=== PATIENT | male | born 1990 | race Caucasian/White ===

== ENCOUNTER 2023-05-06 08:30 | Outpatient (OUT) | payer BC, SELFPAY ==
[2023-05-06 09:28] LABS: Basophils Absolute Auto 0.1 10^3/uL (0.0-0.1); Basophils Percent Auto 1.3 % (0.2-2.0); Eosinophils Absolute Auto 0.3 10^3/uL (0.0-0.7); Hematocrit 46.9 % (42.0-54.0); Hemoglobin 16.1 g/dL (14.0-18.0); Immature Granulocytes Abs Auto 0.03 10^3/uL (0.00-0.03); Immature Granulocytes Pct Auto 0.4 % (0.0-0.5); Lymphocytes Absolute Auto 2.2 10^3/uL (1.2-3.8); Lymphocytes Percent Auto 25.6 % (20.5-60.0); Mean Corpuscular HGB Conc 34.3 g/dL (29.9-35.2); Mean Corpuscular Hemoglobin 30.6 pg (25.9-34.0); Mean Platelet Volume 10.6 fL (9.5-13.5); Monocytes Absolute Auto 0.6 10^3/uL (0.3-0.8); Monocytes Percent Auto 7.5 % (1.7-12.0); Neutrophils Absolute Auto 5.2 10^3/uL (1.4-6.5); Neutrophils Percent Auto 61.2 % (43.0-75.0); Platelet Count 253 10^3/uL (150-450); Red Blood Count 5.27 10^6/uL (4.70-6.10); Red Cell Distribution Width 11.9 % (11.0-15.0); White Blood Count 8.5 10^3/uL (4.0-11.0)
[2023-05-06 10:18] LABS: Estimated Average Glucose 94 mg/dL; Glycohemoglobin A1C 4.9 % (4.5-6.2)
[2023-05-06 11:10] LABS: Alanine Aminotransferase 60 U/L (16-63); Albumin Globulin Ratio 1.1; Albumin Level 3.7 g/dL (3.4-5.0); Alkaline Phosphatase 54 U/L (46-116); Anion Gap 9.3; Aspartate Amino Transferase 20 U/L (15-37); Bilirubin Total 0.4 mg/dL (0.2-1.0); Calcium 8.7 mg/dL (8.5-10.1); Carbon Dioxide 29.7 mmol/L (21.0-32.0); Chloride 107 mmol/L (98-107); Estimated GFR (African America >60 (>=60); Estimated GFR (Non-African Ame >60 (>=60); Free T3 3.22 pg/mL (2.18-3.98); Globulin 3.3 g/dL; Glucose 88 mg/dL (74-106); Sodium 142 mmol/L (136-145); Thyroid Stimulating Hormone 1.538 uIU/mL (0.358-3.740)
[2023-05-08 14:08] LABS: Insulin 21.2 uIU/mL (2.6-24.9)
== END 2023-05-06 08:31 | disposition home or self-care (01) ==
PROVIDERS: PCP Family Medicine; Visit Provider Family Medicine
DX: G43.909 Migraine, unspecified, not intractable, without status migrainosus (principal); R25.1 Tremor, unspecified; F41.9 Anxiety disorder, unspecified; R73.09 Other abnormal glucose
CPT/HCPCS: 36415; 80053; 83036; 83525; 84436; 84443; 84481; 85025

== ENCOUNTER 2023-10-19 09:12 | Outpatient (OUT) | payer BC, SELFPAY ==
--- NOTE | 2023-10-19 | XR_ITS ---
The [address] [address] Patient Name: ROBERT QUIÑONEZ MRN: [id number] date: 1990 Sex: M Assigned Patient Location: Current Patient Location: Accession/Order Number: [id number] Exam Date: 10/19/2023 09:10 Report Date: 10/20/2023 07:23 At the request of: FRANKIE ZENDEJAS Procedure: XR foot RT min 3V PROCEDURE: XR foot RT min 3V HISTORY: RIGHT FOOT PAIN ; chronic heel pain; remote history of stepping on glass COMPARISON: XR ankle right 11/05/2019 FINDINGS: BONES:No fracture, acute abnormality, or significant arthropathy. SOFT TISSUES:No visible soft tissue swelling. EFFUSION:None visible. OTHER: Negative. XR/XR foot RT min 3V IMPRESSION: 1. No radiopaque foreign body. 2. No acute or suspicious bone abnormality. Electronically authenticated by: ANTOINE BETANCOURT Date: 10/20/2023 07:23
== END 2023-10-19 09:13 | disposition home or self-care (01) ==
LOC: EC 09:12
PROVIDERS: PCP Family Medicine; Visit Provider Physician Assistant
DX: M79.671 Pain in right foot (principal)
CPT/HCPCS: 73630

== ENCOUNTER 2023-10-27 06:54 | Outpatient (OUT) | payer BC, SELFPAY ==
--- OUTSIDE RECORDS SUMMARY | 2023-10-27 06:56 | XMS_ITS | CCD ---
Author Organization [facility] Care Team Providers Care Weight Guesser Name Role Phone BERNICE ANTOINE C Unavailable Unavailable HOY, RAQUEL M Unavailable Unavailable RENETTA STOUTLEY A Unavailable Unavailab le QUEEN ANTOINE C Unavailable Unavailable HOY, RAQUEL M Unavailable Unavailable QUEEN, ANTOINE C Unavailable Unavailable HOY, RAQUEL M Unavailable Unavailable QUEEN, ANTOINE C Unavailable Unavailable HOY, RAQUEL M Unavailable Unavailable RENETTA STOUTLEY A Unavailable Unavailab le QUEEN, ANTOINE C Unavailable Unavailable HOY, RAQUEL M Unavailable Unavailable QUEEN, ANTOINE C Unavailable Unavailable HOY, RAQUEL M Unavailable Unavailable QUEEN, ANTOINE C Unavailable Unavailable HOY, RAQUEL M Unavailable Unavailable QUEEN, ANTOINE C Unavailable Unavailable HOY, RAQUEL M Unavailable Unavailable QUEEN, ANTOINE C Unavailable Unavailable HOY, RAQUEL M Unavailable Unavailable QUEEN, ANTOINE C Unavailable Unavailable HOY, RAQUEL M Unavailable Unavailable QUEEN, ANTOINE C Unavailable Unavailable HOY, RAQUEL M Unavailable Unavailable QUEEN, ANTOINE C Unavailable Unavailable HOY, RAQUEL M Unavailable Unavailable QUEEN, ANTOINE C Unavailable Unavailable HOY, RAQUEL M Unavailable Unavailable QUEEN, ANTOINE C Unavailable Unavailable HOY, RAQUEL M Unavailable Unavailable BV, Physician - Emergency Attending Raquel Montez Primary Care Unavailable RAQUEL TURNER Consulting Unavailable Raquel Turner Primary Care Physician OSCAR, DR JONES Attending Unavailable NILL, DR JONES Consulting Unavailable NILL, DR JONES Admitting Unavailable MINERVA, DR GARCÍA Primary Care Unavailable LARRY GRAVES Consulting Unavailable MINERVA, DR GARCÍA Primary Care Unavailable MINERVA, DR GARCÍA Admitting Unavailable MINERVA, DR GARCÍA Attending Unavailable MINERVA, DR GARCÍA Primary Care Unavailable NILL, DR JONES Attending Unavailable NILL, DR JONES Consulting Unavailable NILL, DR JONES Admitting Unavailable MINERVA, DR GARCÍA Primary Care Unavailable NILL, DR JONES Attending Unavailable NILL, DR JONES Consulting Unavailable NILL, DR JONES Admitting Unavailable ANIKETABHIJEET Consulting Unavailable IGNACIA MEIER Consulting Unavailable MINERVA, DR GARCÍA Primary Care Unavailable NILL, DR JONES Attending Unavailable NILL, DR JONES Admitting Unavailable NILL, Robert Ferguson Attending Unavailable Raquel Lopez Referring Unavailabl e NILL, Robert Ferguson Attending Unavailable NILL, Robert Ferguson Attending Unavailable NILL, Robert Ferguson Attending Unavailable COLE, LUZMARIA Attending Unavailable COLE, LUZMARIA Admitting Unavailable COLE, LUZMARIA Attending Unavailable COLE, LUZMARIA Attending Unavailable COLE, LUZMARIA Attending Unavailable COLE, LUZMARIA Attending Unavailable COLE, LUZMARIA Referring Unavailable Allergies Allergy Classification Reported Allergen(s) Allergy Type Date of Onset Reaction(s) Facility (3 sources) Penicillin; Translations: [penicillin] Drug Allergy 2 [facility] Repository (3 sources) Penicillins; Translations: [penicillins] Drug allergy Eruption of skin (disorder) General Surgery [place] Medications Current Medications Medication Drug Class(es) Dates Sig (Normalized) Sig (Original) 24 hr amphetamine aspartate 7.5 mg / amphetamine sulfate 7.5 mg / dextroamphetamine saccharate 7.5 mg / dextroamphetamine sulfate 7.5 mg extended release oral capsule (2 sources) Central Nervous System Stimulant Start: 05-02-2022 take 1 capsule by mouth once daily in the morning Adderall XR 30 mg Cap-ER 30 mg = 1 cap(s), Oral, qAM, Refills(s) 0 Start Date: 05/02/22 Status: Ordered cyproheptadine hydrochloride 4 mg oral tablet (2 sources) Start: 05-02-2022 take 1 tablet by mouth twice daily cyproheptadine 4 mg Tab 4 mg = 1 tab(s), Oral, BID, Refills(s) 0 Start Date: 05/02/22 Status: Ordered valACYclovir 1000 mg oral tablet (2 sources) Herpesvirus Nucleoside Analog DNA Polymerase Inhibitor, Herpes Simplex Virus Nucleoside Analog DNA Polymerase Inhibitor, Herpes Zoster Virus Nucleoside Analog DNA Polymerase Inhibitor Start: 05-02-2022 take 1 tablet by mouth three times daily valacyclovir 1 g Tab 1 gm = 1 tab(s), Oral, TID, Refills(s) 0 Start Date: 05/02/22 Status: Ordered Problems Active Problems Problem Classification Problem Date Documented Da te Episodic/Chronic Anxiety disorders (3 sources) Anxiety; Translations: [Anxiety disorder, unspecified] Onset: 05-25-2022 05-02-2022 Chronic Attention-deficit, conduct, and disruptive behavior disorders (2 sources) Attention deficit hyperactivity disorder 05-02-2022 Chronic Attention-deficit, conduct, and disruptive behavior disorders (1 source) Attention-deficit hyperactivity disorder, unspecified type; Translations: [ADHD UNSPECIFIED TYPE] Onset: 05-25-2022 Chronic Gastrointestinal hemorrhage (4 sources) Hemorrhage of rectum and anus; Translations: [Hemorrhage of anus and rectum] Onset: 05-03-2022 Episodic Hemorrhoids (2 sources) Hemorrhoids 05-02-2022 Episodic Joint disorders and dislocations; trauma-related (3 sources) Other tear of lateral meniscus, current injury, left knee, initial encounter; Translations: [Other tear of lateral meniscus, current injury, left knee, initial encounter] Onset: 06-02-2017 Episodic Other aftercare (1 source) Other vermin exterminator (current) drug therapy; Translations: [OTH MANAGER SEARCH CURRENT DRUG THERAPY] Onset: 05-25-2022 Episodic Other gastrointestinal disorders (1 source) Digestive system finding; Translations: [Other specified symptoms and signs involving the digestive system and abdomen] Onset: 06-01-2022 Episodic Other gastrointestinal disorders (1 source) Rectal discharge 06-01-2022 Episodic Other gastrointestinal disorders (4 sources) Other specified symptoms and signs involving the digestive system and abdomen; Translations: [OTH SPEC SX SIGNS DIGESTV SYS ABD] Onset: 06-11-2022 Episodic Other nutritional; endocrine; and metabolic disorders (2 sources) Body mass index 30+ - obesity 05-03-2022 Chronic Other upper respiratory disease (2 sources) Seasonal allergic rhinitis 05-02-2022 Chronic Residual codes; unclassified (1 source) Tobacco user; Translations: [Tobacco use] Onset: 05-03-2022 Episodic Residual codes; unclassified (2 sources) Chews tobacco 05-03-2022 Episodic Spondylosis; intervertebral disc disorders; other back problems (2 sources) Low back pain 05-02-2022 Episodic Substance-related disorders (1 source) Nicotine dependence, chewing tobacco, uncomplicated; Translations: [NICOTINE DEPEND CHEW TOBACCO UNCOMP] Onset: 05-25-2022 Chronic Unclassified (1 source) CONTACT W/AND (SUSP) EXPOS COVID-19; Translations: [CONTACT W/AND (SUSP) EXPOS COVID-19] Onset: 05-17-2022 Past or Other Problems Problem Classification Problem Date Documented Da te Episodic/Chronic Anal and rectal conditions (15 sources) Anorectal disorder; Translations: [Other specified diseases of anus and rectum] Onset: 05-03-2022 Episodic Results Test Name Value Interpretation Reference Range Facility Follow-Upon 12-07-2022 Follow-Up [id number] Vinicius Pagan ae 1990 M Date Provider Department Center 12/07/2022 YOSI DOWNSHANIE [facility] Second Fl Family History Problem Relation Age of Onset No Known Problems Mother No Known Problems Father Family Status - Relation Status Age at Mother Alive Father Alive Level of Service:36330 UT OFFICE/OUTPATIENT ESTABLISHED LOW MDM 20-29 MIN Reason for Visit and Comments: Follow-up [709805] - Robert is in for Perirectal abscess; s/p 07-12-23 EUA W/ I&D W/ SETON PLACEMENT (New rectal bleeding/rectal pain) a lot of drainage and pain Normal [facility] Follow-Upon 10-26-2022 Follow-Up [id number] Vinicius Pagan ael 1990 M Date Provider Department Center 10/26/2022 LUZMARIA DOWNS [facility] Second Fl Family History Problem Relation Age of Onset No Known Problems Mother No Known Problems Father Family Status - Relation Status Age at Mother Alive Father Alive Level of Service:28162 UT POSTOP FOLLOW UP VISIT RELATED TO ORIGINAL PX Reason for Visit and Comments: Follow-up [659278] - Patient is here for a follow up visit for Anal Fissure/Rectal Abscess s/p 07-12-23 EUA W/ I&D W/ SETON PLACEMENT (Discuss seton removal). Normal [facility] MR PELVIS WO CONTRASTon 03-0 MR PELVIS WO CONTRAST History: Anal fissure. Rectal abscess. Seton drain in place with persistent drainage. Comparison: None available EXAM & TECHNIQUE: Multiplanar, multisequence MR images are obtained of the pelvis without contrast. FINDINGS: There is a linear signal intensity extending from the posterior wall the anus and sphincter complex and posterior soft tissue tissues and gluteal cleft. No localized surrounding fluid collection or regional abscess. Diffusion images show no further localizing soft tissue pathology. Included portions of the lower abdomen pelvis show no evidence of free fluid, mass or adenopathy. Urinary bladder appears grossly normal. Bony structures are in normal limits. IMPRESSION: *Negative noncontrast MRI of the pelvis. No residual perianal or soft tissue fluid collection. Uncomplicated seton drain in place. Electronically signed: Dharmesh Kirkpatrick. [facility] Comment on above: Order Comment: RECTA L MRI NEEDED Office Visiton 09-02-2022 Follow-up visit [id number] IrishlluviaVinicius ael 1990 M Date Provider Department Center 09/02/2022 Ramiro-LUZMARIA GALVAN [facility] SUR[facility] Second Fl Family History Problem Relation Age of Onset No Known Problems Mother No Known Problems Father Family Status - Relation Status Age at Mother Alive Father Alive Level of Service:30822 UT OFFICE/OUTPATIENT ESTABLISHED MDM 10-19 MIN Reason for Visit and Comments: Post-op [483] - Robert is here today for a post op visit, s/p 07/12/23 I&D of perianal abscess. [facility] 36on 07-18-2022 36 PER PT REQUEST EMAIL ED TO : [email or web address] 07/18/22 AT 10:04AM [facility] Consultation Noteon 07-14-20 Consultation Note [id number]#[id number]:127 [facility] HPon 07-12-2022 HP H&P reviewed. The terry martell was examined and there are no changes to the H&P. [facility] NURSNOTEon 07-12-2022 NURSNOTE Pt anxious and ready to go. Discharge instructions reviewed with GF and pt [facility] OPNOTEon 07-12-2022 OPNOTE EXAM UNDER ANESTHESI A, INCISION AND DRAINAGE OF PERIANAL ABSCESS AND POSSIBLE SETON PLACEMENT Operative Note Date: 07/12/2022 Location: [facility] OR Name: Robert Pagan, : 1990, Diagnosis Pre-op Diagnosis * Anal fistula [K60.3] Post-op Diagnosis * Anal fistula [K60.3] Procedures * EXAM UNDER ANESTHESIA * INCISION AND DRAINAGE OF PERIANAL ABSCESS AND POSSIBLE SETON PLACEMENT UT I&D PERIANAL ABSCESS SUPERFICIAL [60704] UT PLACEMENT SETON [37736] UT ANRCT XM SURG REQ ANES GENERAL SPI/EDRL DX [98258] Surgeons * Luzmaria Galvan - Primary Procedure Summary Anesthesia: General ASA: II Estimated Blood Loss: Minimal Total IV Fluids: 500 mL Drains: * None in log * Staff: Paint Formulator: Param Lyman RN Scrub Person: Mitra Mcmillan CST [place] Paint Formulator: Sandip Payne RN Indications: Robert Pagan is an 32 y.o. male who is having surgery for Anal fistula [K60.3]. Procedure Details: The patient was seen in the preoperative area. The risks, benefits, complications, treatment options, non-operative alternatives, expected recovery and outcomes were discussed with the patient. The possibilities of reaction to medication, pulmonary aspiration, injury to surrounding structures, bleeding, recurrent infection, the need for additional procedures, failure to diagnose a condition, and creating a complication requiring transfusion or operation were discussed with the patient. The patient concurred with the proposed plan, giving informed consent. The site of surgery was properly noted/marked if necessary per policy. The patient has been actively warmed in preoperative area. Preoperative antibiotics are not indicated. Venous thrombosis prophylaxis are not indicated. Patient was brought into the operating room under Mac in prone position. Perineum was prepped and draped in the usual sterile fashion. 20 ml exparel was used to block the perineum. Post fistula tract was easily identified and probed. Micheal pus was expressed. Seton was placed and patient was taken to pacu. To see me in clinic in 3 months. Findings: post fistula Complications: None; patient tolerated the procedure well. Disposition: PACU - hemodynamically stable. Condition: stable Luzmaria Galvan Normal [facility] POCT GLUCOSE METER UNSOLICIT ED RESULTSon 07-12-2022 Glucose [Mass/Vol] 74 mg/dL Normal 70-105 [place] Comment on above: Result Comment: epaw low Performed By: #### L [id number] ####[facility] ([facility]AK[facility])[address] [place] [address] Orders Onlyon 07-11-2022 Orders Only [id number] Vinicius Pagan ael 1990 M Date Provider Department Center 07/11/2022 Fred-DEBORAH ABRAHAM [facility] Family History Problem Relation Age of Onset No Known Problems Mother No Known Problems Father Family Status - Relation Status Age at Mother Alive Father Alive Normal [facility] Consulton 07-08-2022 Consult [id number] Vinicius Pagan ael 1990 M Date Provider Department Center 07/08/2022 Ramiro-LUZMARIA GALVAN [facility] Second Fl Family History Problem Relation Age of Onset No Known Problems Mother No Known Problems Father Family Status - Relation Status Age at Mother Alive Father Alive Level of Service:14117 UT OFFICE/OUTPATIENT NEW LOW MDM 30-44 MINUTES Reason for Visit and Comments: Consult [484] - Painless rectal bleeding; abdominal pain; lump beside anus; Referral in Media Normal [facility] HPon 07-08-2022 HP Subjective Patient ID: Robert Pagan is a 32 y.o. male who presents for Consult (Painless rectal bleeding; abdominal pain; lump beside anus; Referral in Media). This unfortunate 32-year-old male has a complaint of a lump around his perianal area that felt very full and then drained. He has had a CT scan, LUCY, and flex sig where they have been trying to diagnose his issues. He states that the previous surgeon was unable to identify any abnormalities. The patient states he is also having some abdominal pain after he eats but it seems unrelated to his perianal issues. Patient states he is having excessive draining from his anus that appears to be pus. He said initially he felt like he had a horseshoe type bulge around his anus. Review of Systems Constitutional: Negative. HENT: Negative. Eyes: Negative. Respiratory: Negative. Cardiovascular: Negative. Gastrointestinal: Positive for abdominal pain and rectal pain. Endocrine: Negative. Genitourinary: Negative. Musculoskeletal: Negative. Skin: Negative. Allergic/Immunologic: Negative. Neurological: Negative. Hematological: Negative. Psychiatric/Behavioral: Negative. Objective Visit Vitals BP (!) 147/102 (BP Location: Right arm, Patient Position: Sitting) Pulse 82 Temp 36.5 ???C (97.7 ???F) Physical Exam Constitutional: Appearance: Normal appearance. HENT: Head: Normocephalic and atraumatic. Nose: Nose normal. Cardiovascular: Rate and Rhythm: Normal rate. Pulmonary: Effort: Pulmonary effort is normal. Abdominal: General: Abdomen is flat. Palpations: Abdomen is soft. Genitourinary: Comments: Obvious opening on the 11 o'clock position of the perineum with active pus draining on palpation. Musculoskeletal: General: Normal range of motion. Cervical back: Normal range of motion. Skin: General: Skin is warm. Neurological: General: No focal deficit present. Mental Status: He is alert and oriented to person, place, and time. Psychiatric: Mood and Affect: Mood normal. Behavior: Behavior normal. Thought Content: Thought content normal. Judgment: Judgment normal. Assessment/Plan Diagnoses and all orders for this visit: Anal fistula - Case Request Operating Room: EXAM UNDER ANESTHESIA I&D of perianal abscess w/ possible seton placement; Standing Other orders - Full Code; Standing - bupivacaine liposome (Exparel) 1.3 % (13.3 mg/mL) injection 266 mg - Notify physician per standard parameters; Standing Diagnosis Plan 1. Anal fistula Case Request Operating Room: EXAM UNDER ANESTHESIA I&D of perianal abscess w/ possible seton placement Case Request Operating Room: EXAM UNDER ANESTHESIA I&D of perianal abscess w/ possible seton placement We will plan on taking this patient to the operating room for an exam under anesthesia and I&D and possible seton placement. I explained to the procedure in details to the patient and he understands and is willing to proceed. No orders of the defined types were placed in this encounter. No results found for this or any previous visit (from the past 36 hour(s)). No follow-ups on file. Normal [facility] RAD - CT Reporton 06-17-2022 RAD - CT Report [id number]#[id number]:127 Normal [facility] CT PELVIS W CONon 06-11-2022 CT PELVIS W CON EXAMINATION: CT PELV IS W CON, 06/11/2022 8:30 AM EDT HISTORY: Anorectal disorder . Rectal/anal abscess. Rectal bleeding x1 month. COMPARISON: None. TECHNIQUE: CT of the pelvis was performed following administration of IV contrast. Oral contrast was not administered prior to the examination. Dose reduction techniques were achieved by using automated exposure control and/or adjustment of mA and/or kV according to patient size and/or use of iterative reconstruction technique. FINDINGS: Visualized kidneys and ureters: Normal. Bladder: Normal. Reproductive organs: Prostate and seminal vesicles are grossly unremarkable. Visualized gastrointestinal tract: Nondilated. The appendix is normal. Peritoneum/retroperitoneum: No free fluid or gas. Vasculature: Patent. No abdominal aortic aneurysm. Lymph nodes: Normal. Abdominal wall: Grossly unremarkable. Specifically, there is no appreciable perianal fistula/abscess. No visualize drainable collection. Musculoskeletal: Normal. IMPRESSION: 1. No acute findings within the visualized pelvis. No appreciable perianal fistula/abscess. If there is persistent clinical concern for perianal pathology, perianal fistula protocol pelvic MRI, if available, would offer increased sensitivity. Electronically authenticated by: LARRY GRAVES Date: 2022-06-11 10:05 Normal [facility] Ambulatory Visit Summaryon 1 Ambulatory Visit Summary ROBERT PAGAN :1990 Visit Date:06/01/2022 Ambulatory Visit Instructions Your Diagnosis Rectal pain Rectal discharge Tests Performed CT Pelvis w/ Contrast -- Results Pending -- Please visit your patient portal for your results or contact your primary care physician. Your Care Team Attending Physician - Robert RODRIGUEZ MD Primary Care Physician - Raquel Turner MD This Is Your Medications List amphetamine-dextroamphetami ne (Adderall XR 30 mg Cap-ER) cyproheptadine (cyproheptadine 4 mg Tab) valacyclovir (valacyclovir 1 g Tab) Procedures Performed Flexible sigmoidoscopy (05/18/2022), Extraction of wisdom tooth, Meniscal repair. Medications What How Much When Instructions Unchanged amphetamine-dextroamphetami ne (Adderall XR 30 mg Cap-ER) 1 Capsules By Mouth Once a day (in the morning) Unchanged cyproheptadine (cyproheptadine 4 mg Tab) 1 Tablets By Mouth 2 times a day Unchanged valacyclovir (valacyclovir 1 g Tab) 1 Tablets By Mouth 3 times a day Allergies penicillins (Rash) Problems Ongoing - Any problem that you are currently receiving treatment for. ADHD Anxiety BMI 34.0-34.9,adult Chews tobacco Hemorrhoids Low back pain syndrome Rectal bleeding Rectal discharge Rectal pain Seasonal allergic rhinitis Veronika [facility] General Surgery Office/Clini c Noteon 06-01-2022 General Surgery Office/Clinic Note Chief Complaint sigmoidoscopy follow up HPI Staff 14 day post operative follow up post sigmoidoscopy with rectal biopsy. He continues to experience rectal pain and rectal discharge. History of Present Illness 2 weeks s/p flexible sigmoidoscopy for rectal pain, drainage, swelling, intermittent discharge; mild inflammation noted in rectum and mucous; biopsies with no evidence of inflammation; no evidence of abscess or fistula tract; no hemorrhoidal disease, no external inflammation or induration. patient still reports pain and intermittent drainage; feeling of fullness/lump. Review of Systems ROS - Provider Constitutional: no fever, no sweats, no weight loss. Eyes: no glasses, no blurred vision, no visual loss. ENMT: no dentures, no hoarseness, no swallowing difficulties, no hearing loss, no ear infection(s), no nose bleeds. Cardiovascular: normal blood pressure, no chest pain, regular heartbeat, no heart murmur. Respiratory: no shortness of breath, no cough, no asthma, no wheezing. Gastrointestinal: no nausea, no vomiting, no diarrhea, no constipation, no blood in stool, no change in bowel habits, no abdominal pain, no hepatitis. Genitourinary: no kidney stones, no urine infection, no dysuria. Musculoskeletal: no pain, no weakness. Skin: no changing moles, no rash, no skin lumps. Neurologic: no seizures, no epilepsy, no headache. Psychiatric: no emotional or psychiatric problem. Heme/Lymph: no bleeding problems, no anemia, no blood clots, no transfusions. Allergy/Immunologic: no swollen lymph nodes/glands, no IV drug abuse. Other: Additional ROS info: Except as noted in the above Review of Systems and in the History of Present Illness, all other systems have been reviewed and are negative or noncontributory. Assessment/Plan 1. Rectal pain (K62.89: Other specified diseases of anus and rectum) no external evidence of abscess or fistula, possible deep intersphincteric or ischiorectal abscess; will obtain pelvic ct scan with contrast for further evaluation, will call patient with results; may need referral to rectal specialist; call sooner if problems/questions. Ordered: CT Pelvis w/ Contrast 2. Rectal discharge (R19.8: Other specified symptoms and signs involving the digestive system and abdomen) see # 1 Ordered: CT Pelvis w/ Contrast Follow-up No qualifying data available Problem List/Past Medical History Ongoing ADHD Anxiety BMI 34.0-34.9,adult Chews tobacco Hemorrhoids Low back pain syndrome Rectal bleeding Rectal discharge Rectal pain Seasonal allergic rhinitis Historical No qualifying data Procedure/Surgical History Flexible sigmoidoscopy (05/18/2022), Extraction of wisdom tooth, Meniscal repair. Medications Adderall XR 30 mg Cap-ER, 30 mg= 1 cap(s), Oral, qAM cyproheptadine 4 mg Tab, 4 mg= 1 tab(s), Oral, BID valacyclovir 1 g Tab, 1 gm= 1 tab(s), Oral, TID Allergies penicillins (Rash) Social History Alcohol Current, Beer, 1-2 times per week, 05/03/2022 Substance Abuse - Denies Substance Abuse, 05/03/2022 Tobacco Never (less than 100 in lifetime) Tobacco Use:. Smokeless tobacco user within last 30 days Smokeless Tobacco Use:. Oral, Started age 24.0 Years. Yes, 05/03/2022 Family History Family history is negative Immunizations Vaccine Date Status Comments influenza virus vaccine, inactivated - Not Given Patient Refuses [facility] Comment on above: Result Comment: Elec tronically Signed By: OSCAR PRYOR, Robert Gutierrez\Date and Time Signed: 06/01/22 16:00 EDT Pathology Noteon 05-23-2022 Pathology Note [id number]:127 Normal [facility] Outside Flexible Sigmoidosco pyon 05-19-2022 Outside Flexible Sigmoidoscopy [id number]#[id number]:127 Normal [facility] Lab Reportson 05-17-2022 Lab Reports [id number]:127 Normal [facility] Covid-19 PCR (CVDTBH)on 10 SARS-CoV-2 (COVID-19) RNA DILMA+probe Ql (Unsp spec) Not detected Normal NOT DETECTED [facility] Comment on above: Result Comment: This test is not yet approved or cleared by the [place] FDA. When there are no FDA-approved or cleared tests available, and other criteria are met, FDA can make tests available under an emergency access mechanism called an Emergency Use Authorization (EUA). The EUA for this test is supported by the [employer] of Health and Human Service's (HHS's) declaration that circumstances exist to justify the emergency use of in vitro diagnostics for the detection and/or diagnosis of the virus that causes COVID-19. This EUA will remain in effect (meaning this test can be used) for the duration of the COVID-19 declaration justifying emergency of IVDs, unless it is terminated or revoked by FDA (after which the test may no longer be used). When diagnostic testing is negative, the possibility of a false negative should be considered in the context of a patient's recent exposures and the presence of clinical signs and symptoms consistent with SARS-CoV-2. Performed By: #### [facility] #### [facility] [address] [place] [address] Dr. Anai Burdick Consultation Noteon 05-05-20 22 Consultation Note [id number]:127 Normal [facility] Consent for Procedure/Surger yon 05-04-2022 Consent for Procedure/Surgery [id number]:127 Normal [facility] Ambulatory Visit Summaryon 0 05-03-2022 Ambulatory Visit Summary ROBERT PAGAN :1990 Visit Date:05/03/2022 Ambulatory Visit Instructions Your Care Team Attending Physician - OSCAR PRYOR, Robert Ferguson Primary Care Physician - Raquel Turner MD This Is Your Medications List amphetamine-dextroamphetami ne (Adderall XR 30 mg Cap-ER) cyproheptadine (cyproheptadine 4 mg Tab) valacyclovir (valacyclovir 1 g Tab) Procedures Performed Extraction of wisdom tooth, Meniscal repair. Discharge Vitals Heart Rate (Peripheral) 92 Respiratory Rate 16 Blood Pressure 128/90 Height 172.72 cm Height 68 in Weight 102.5 kg Weight 225.5 lb BMI 34.36 Medications What How Much When Instructions Unchanged amphetamine-dextroamphetami ne (Adderall XR 30 mg Cap-ER) 1 Capsules By Mouth Once a day (in the morning) Unchanged cyproheptadine (cyproheptadine 4 mg Tab) 1 Tablets By Mouth 2 times a day Unchanged valacyclovir (valacyclovir 1 g Tab) 1 Tablets By Mouth 3 times a day Medications and Immunizations Administered Not Given influenza virus vaccine, inactivated, Patient Refuses Allergies penicillins (Rash) Problems Ongoing - Any problem that you are currently receiving treatment for. ADHD Anxiety BMI 34.0-34.9,adult Hemorrhoids Low back pain syndrome Seasonal allergic rhinitis Normal [facility] Physician Referralon 022 Physician Referral [id number]:127 Normal [facility] CT Brain w/o Contraston 06-08 CT Brain w/o Contrast CT HEAD WITHOUT INTRAVENOUS CONTRAST (34494) CLINICAL HISTORY: Other (please specify) frontal headache, nosebleed prior to arrival; pt had a concussion 1 week ago; no hx stroke or seizure; no prev on amicas; RRIA @ 0129 TECHNIQUE: Axial computed tomography images of the head/brain without intravenous contrast. Sagittal and coronal reformatted images were created and reviewed. This CT exam was performed using one or more of the following dose reduction techniques: automated exposure control, adjustment of the mA and/or kV according to patient size, and/or use of iterative reconstruction technique. COMPARISON: No relevant prior studies available. FINDINGS: BRAIN: Posterior fossa demonstrates NO evidence of hemorrhage or mass. Supratentorial brain demonstrates NO evidence of hemorrhage or mass. VENTRICLES: The ventricles are not significantly dilated. NO significant shift of midline structures. BONES/JOINTS: Calvarium and skull base demonstrate NO acute changes. SOFT TISSUES: NO evidence of acute findings. SINUSES: Minimal mucosal thickening in the anterior RIGHT maxillary sinus. The paranasal sinuses demonstrate NO opacification or fluid levels. MASTOID AIR CELLS: Mastoid air cells demonstrate NO opacifications or fluid levels. IMPRESSION: - Minimal mucosal thickening in the anterior RIGHT maxillary sinus. The differential includes sinusitis. The age of this finding is indeterminate on this examination. - NO evidence of intracerebral hemorrhage or mass. Radiation Dose Estimate: CTDI(mGy):0.054905 / / / kVp:120.547795 / mAs:0.784369 / / / DLP(mGy-cm):6.890398Alyy Part: Head CTDI(mGy):47.221192 / / / kVp:120.566661 / mAs:190.269363 / / / DLP(mGy-cm):792.125997Nygx Part: Head Final Dictated by: Phillip Acosta MD Dictated DT/TM: 06.27.2019 1:31 am Signed by: Phillip Acosta MD Signed (Electronic Signature): 06.27.2019 1:34 am (If Report Is Signed, Electronically Signed in Other Vendor System) Normal [facility] ED Clinical Summaryon 2018 ED Clinical Summary [place] [id number] ED Clinical Summary Person Information Name: Robert Pagan [facility] Age: 29 Years : 1990 Sex: Male PCP: Raquel Turner MD Marital Status: Single Phone: Race: White Ethnicity: Not or Language: Danish Visit Reason: Headache; Headache Acuity: 3 Enc Type: Emergency Med Service: Emergency Medicine Arrival: 06/27/2019 01:12:14 Discharge: 06/27/2019 02:07:00 LOS: 000 00:55 Checkin: 06/27/2019 01:12:14 Checkout: 06/27/2019 02:07:00 Dispo Type: Home or Self Care Address: [address] [place] [address] Provider Notes: Diagnosis: 1:Closed head injury; 2:Headache Problems No Problems Documented Smoking Status: Smoking Status Never (less than 100 in lifetime) Functional Status: Sensory Deficits: History of Falls: Mobility Assistance Prior to Admission: ADLs: Current Level of Assistance for Self-Care/Mobility: Cognitive Status: Allergies penicillin (Rash) Laboratory or Other Results This Visit (last charted value for your 06/27/2019 visit) Computed Tomography 06/27/2019 1:[address] Brain w/o Contrast: CT Brain w/o Contrast Measurements: Height: Weight: Blood Pressure: /98 mmHg BMI: Procedures No Procedures Documented Immunizations No Immunizations Documented This Visit Final Med List: No Medications Documented Care Team Members: Attending Physician: Perez PRYOR, Bertin Mcrae Consulting Physician: Referring Physician: Provider Role Assigned Unassigned Yadira Donald PA-C ED MidLevel 06/27/2019 01:17:18 Sona Carias ED Nurse 06/27/2019 01:18:54 Follow up: With: Address: When: Emergency Room , only if needed Comments: Return for any worsening symptoms, change in mental status, weakness, vomiting or other concerns With: Address: When: Family Physician Within 2 to 4 days Comments: Recheck today's symptoms Discharge Orders: Discharge Patient 06/27/19 1:42:00 EST, Discharge to Home, Self Patient Education Information: HEADACHE, Unspecified; HEAD INJURY, No Wake-Up (Adult) [facility] Poison Help line: . [facility] Hotline: [place] Tobacco Quit Line: [place], [place]) [address]: [phone] [place], [place]) [address]: [phone] [facility] [address], [place]: [phone] [facility] ED Note-Physicianon 06-27-20 ED Note-Physician Chief Complaint Pt states he had a concussion about two weeks ago and now is having a LE and recent bloody nose History of Present Illness Patient presents to ED c/o frontal headache, dizziness, nausea starting around 1-2 hours prior to arrival while sitting at work. Patient states he hit his head on a piece of exercise equipment one week ago and has had a headache since but pain was improving until today. He denies LOC, altered mental status, vision changes, weakness, numbness, vomiting. Symptoms are aggravated/alleviated by nothing. Patient reports a history of multiple concussions w/frequent headaches but has never had a CT of his brain. He has taken Tylenol prior to arrival. Review of Systems General: [Negative for fever, chills, weakness, malaise] Head: [Positive for injury. Negative for bruising, swelling] Eyes: [Negative for injury, redness, pain, discharge] Neck: [Negative for injury, pain, swelling, stiffness] Cardiovascular: [Negative for chest pain, palpitations, edema] Respiratory: [Negative for shortness of breath, cough, wheezing, pleuritic chest pain] Abdomen: [Positive for nausea. Negative for vomiting] Musculoskeletal: [Negative for injury, pain, decreased range of motion, swelling, bruising, numbness, tingling, weakness] Skin: [Negative for injury, rash, discoloration] Neuro: [Positive for headache, dizziness. Negative for LOC, altered mental status, seizure activity, syncope, weakness] All other systems reviewed are negative and normal Physical Exam General: [Alert, awake, no apparent distress] Eyes: [PERRL, extraocular movements intact, clear conjunctiva] Head: [Normocephalic, atraumatic] Neck: [No midline tenderness, supple, no nuchal rigidity, full range of motion] Cardiovascular: [Regular rate and rhythm, no appreciated murmurs, normal S1 and S2, strong radial pulses w/intact distal perfusion] Respiratory: [Lungs clear to auscultation w/out wheezes, rhonchi, or rales, normal excursion, no accessory muscle use, no stridor] Musculoskeletal: [No tenderness to palpation, normal range of motion, no deformity, no ecchymosis, no swelling, no erythema. Pulses normal, sensation intact] Skin: [[place], warm, dry, no injury, no rashes] Neuro: [Alert and oriented x 3, GCS 15, Normal mentation and speech. Moves all extremities w/out motor or sensory deficit, gait is steady, strength normal in all extremities] Psych: [Normal mood and affect, thought process is clear and linear] Vitals & Measurements T: 36.7 ?C (Oral) RR: 16 BP: 151/98 SpO2: 96% WT: 103.0 kg Additional Vitals Peripheral Pulse Rate: 67 bpm Medical Decision Making Differential Diagnosis: closed head injury, headache, hemorrhage, concussion The results of pertinent diagnostic studies and exam findings were discussed. The patient?s provisional diagnosis and plan of care were discussed with the patient and present family. The patient and/or present family expressed understanding of the diagnosis and plan. The nurse was instructed to provide written instructions and appropriate follow-up information. The patient understands their need and responsibility to obtain additional follow-up as instructed. Patient refuses need for medication while here in ED. He states his employer just wanted to come to ED for evaluation. Assessment/Plan CT shows no acute findings. Vitals are stable, patient is neurovascularly intact and resting comfortably in room. Will d/c home and have him follow up w/PCP for recheck/further evaluation and possible neurology referral d/t history of headaches and past head injuries. Advised him to return for any worsening symptoms, AMS, weakness, vomiting or other concerns. 1. Closed head injury 2. Headache Orders: Discharge Patient Problem List/Past Medical History Ongoing No qualifying data Historical No qualifying data Medications Home No active home medications Inpatient No active inpatient medications Prescriptions No active Prescriptions Allergies penicillin (Rash) Social History Alcohol Current, Beer, 1-2 times per week Tobacco Never (less than 100 in lifetime) Use:. Cigarettes Diagnostic Results XRay No qualifying data available (XRay) Computerized Tomagraphy CT Brain w/o Contrast 06/27/19 01:31:49 IMPRESSION: _Minimal mucosal thickening in the anterior RIGHT maxillary sinus. The differential includes sinusitis. The age of this finding is indeterminate on this examination. _NO evidence of intracerebral hemorrhage or mass. Signed By: Phillip Acosta MD Ultrasound No qualifying data available (Ultrasound) Magnetic Resonance Imaging No qualifying data available (MRI) Electronically signed by aYdira Donald PA-C 06/27/19 02:49 EST Normal [facility] MRI KNEE LEFT WO CONTRASTon 04-13-2018 MRI KNEE LEFT WO CONTRAST EXAMINATION:MRI OF THE LEFT KNEE WITHOUT CONTRAST, 04/13/2018 8:28 amTECHNIQUE:Multiplanar multisequence MRI of the left knee was performed without theadministration of intravenous contrast.COMPARISON:MRI of the left knee dated 04/20/2017. Radiographs dated 04/05/2017.HISTORY:ORDERING SYSTEM PROVIDED HISTORY: Traumatic tear of lateral meniscus of knee,left, initial encounterMeniscal surgery in May 2017.FINDINGS:MENISCI: There is a tiny radial defect at the free edge of the lateralmeniscal body, not significantly changed when compared with the previous MRIdated 04/20/2017. Medial meniscus is intact.CRUCIATE LIGAMENTS: Anterior cruciate and posterior cruciate ligaments areintact.EXTENSOR MECHANISM: Extensor mechanism is intact. A nonedematousossification is seen in the distal patellar tendon. There is a tiny amountof fluid in the deep infrapatellar bursa, unchanged.LATERAL COLLATERAL LIGAMENT COMPLEX: Distal iliotibial band, lateralcollateral ligament, distal biceps femoris tendon, and proximal popliteustendon are intact.MEDIAL COLLATERAL LIGAMENT COMPLEX: Medial collateral ligament is intact.Medial patellar retinaculum is intact.KNEE JOINT: Medial, lateral, and patellofemoral compartment cartilage ispreserved. There is a tiny amount of joint fluid, likely physiologic. NoBaker's cyst. Visualized muscle signal is normal. High origin of theanterior tibial artery is noted.BONE MARROW: Tiny benign enchondroma in the medial femoral condyle isunchanged. Bone marrow signal is otherwise normal.IMPRESSION: 1. Overall stable MRI appearance of the left knee when compared to04/20/2017, including a tiny radial defect in the free edge of the lateralmeniscal body, possibly sequelae of previous surgery. No evidence ofrecurrent meniscal tear.2. Sequelae of [place]-Schlatter's disease.3. 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 Normal [facility] Vital Signs Date Time Vital Sign Value Performing Clinician Faci kaylene 05-03-2022 16:07-0400 Blood Pressure Location Robert RODRIGUEZ [facility] [place] 05-03-2022 16:07-0400 Diastolic blood pressure 90 mm[Hg] Robert RODRIGUEZ [facility] [place] 05-03-2022 16:07-0400 Heart rate 92 /min Robert RODRIGUEZ [facility] [place] 05-03-2022 16:07-0400 Respiratory rate 16 /min Robert RODRIGUEZ [facility] [place] 05-03-2022 16:07-0400 Systolic blood pressure 128 mm[Hg] Robert RODRIGUEZ [facility] [place] Encounters Encounter Date Encounter Type Care Provider Facility Start: 12-07-2022 End: 12-07-2022 ambulatory [facility] Start: 10-26-2022 End: 10-26-2022 ambulatory [facility] Start: 10-12-2022 End: 10-13-2022 ambulatory [facility] Start: 09-02-2022 End: 09-02-2022 ambulatory [facility] Start: 07-12-2022 End: 07-12-2022 ambulatory [facility] Start: 07-08-2022 End: 07-08-2022 ambulatory [facility] Start: 06-11-2022 End: 06-12-[address] ROBERT RODRIGUEZ Facility:[facility] Start: 06-01-2022 End: 06-02-2022 ambulatory Robert RODRIGUEZ Facility:[facility] Start: 06-01-2022 End: 06-01-2022 Patient encounter procedure Robert RODRIGUEZ [facility] Start: 05-18-2022 End: 05-19-[address] RAQUEL TURNER Facility:[facility] Start: 05-17-2022 Encounter for preprocedural laboratory examination DR ROBERT RODRIGUEZ [facility] Start: 05-14-2022 End: 05-15-[address] RAQUEL TURNER Facility:[facility] Start: 05-14-2022 End: 05-15-2022 Encounter for preprocedural laboratory examination DR RAQUEL TURNER Facility:[facility] Start: 05-11-[address] RAQUEL TURNER Facility :[facility] Start: 05-03-2022 End: 05-04-2022 ambulatory Robert JONESRachel Facility:[facility] [place] Start: 05-03-2022 End: 05-03-2022 Patient encounter procedure Robert Ferguson OSCAR [facility] [place] Start: 05-02-2022 ambulatory Robert RODRIGUEZ Facility :[facility] [place] Start: 07-27-[address] RAQUEL TURNER Facility :[facility] Start: 06-27-2019 End: 06-27-2019 Emergency department patient visit Physician - Emergency BV Facility:[facility] Start: 04-13-2018 End: 04-16-2018 Patient encounter ANTOINE Lucie [facility]ERNICE [facility] Start: 06-27-2017 End: 06-28-2017 Patient encounter ANTOINE Lucie BERNICE [facility] Start: 06-26-2017 End: 06-27-2017 Patient encounter [facility]TO[facility] Start: 06-23-2017 End: 06-24-2017 Patient encounter ANTOINE [facility] Start: 06-20-2017 End: 06-21-2017 Patient encounter ANTOINE [facility] Start: 06-19-2017 End: 06-20-2017 Patient encounter ANTOINE [facility] Start: 06-16-2017 End: 06-17-2017 Patient encounter ANTOINEKETTY [facility] Start: 06-13-2017 End: 06-14-2017 Patient encounter ANTOINE [facility] Start: 06-12-2017 End: 06-13-2017 Patient encounter ANTOINEKETTY [facility] Start: 06-09-2017 End: 06-10-2017 Patient encounter JAZ Ritesh ALEJANDRELANETTEKYLER [facility] Start: 06-07-2017 Patient encounter JAZ CHÁVEZ [facility] Start: 06-06-2017 End: 06-07-2017 Patient encounter ANTOINEKETTY [facility] Start: 06-05-2017 End: 06-06-2017 [facility] Start: 06-02-2017 End: 06-03-2017 Patient encounter ANTOINE [facility] Procedures Date Procedure Procedure Detail Performing Clinician Start: 10-26-2022 Follow-up visit Follow-up RAY GALVAN Start: 05-18-2022 Flexible fiberoptic sigmoidoscopy Robert OSCAR Start: 04-13-2018 Mri any jt lower ext rem w/o contrast matrl ANTOINE [place] Extraction of wisdom tooth M ichjessica JONESL Repair of meniscus Robert MARES Immunizations Immunization Date Immunization Notes Care Provider Syed patel NEGATED: Highlighted row has not occurred!05-03-2022 influenza virus vaccine, unspecified formulation Robert OSCAR [facility] [place] Payers Date Payer Category Payer Unknown [id number] 2019 Unknown 2017 Unknown [id number] 2017 Unknown [id number] 1990 Unknown [id number] 2.16.8 [id number] 1990 Unknown [id number] 2.16.84 [id number] 1990 Unknown [id number] 2.16.84 [id number] 1990 Unknown [id number] 2.16.84 [id number] 1990 Unknown [id number] 2.16.84 [id number] 1990 Unknown [id number] 2.16.84 [id number] 1990 Unknown [id number] 2.16.8 [id number] 1990 Unknown [id number] 2.16.8 [id number] 1990 Unknown [id number] 2.16.8 [id number] 1990 Unknown [id number] 2.16.8 [id number] 1959 Unknown [id number] 1959 Unknown [id number] Social History Date Type Detail Facility Start: 05-03-2022 Tobacco smoking status Never s moked tobacco (finding) [facility] [place] Tobacco smoking status Smokeless tobacco user within last 30 days [facility] [place] Sex Assigned At Male [facility] [place] Functional Status Date Assessment Result Facility 05-03-2022 Functional Status N/A [facility] Clinical Notes 05-03-2022 to 12-07-2022 Note Date & Type Note Facility 12-07-2022 Note Subjective Patient ID: Robert Pagan is a 32 y.o. male who presents for Follow-up (Robert is in for Perirectal abscess; s/p 07-12-23 EUA W/ I&D W/ SETON PLACEMENT (New rectal bleeding/rectal pain) a lot of drainage and pain ). Still having drainage from rectum that consist pus and some blood. Patient states he is still occasionally experiencing some pain.He states mostly the pain happens when he has a bowel movement and will last for couple hours after.I explained to him this is most consistent with a fissure and he agrees.Otherwise the patient has no complaints or issues. He did say that normally he has a bowel movement daily but since this problem started he has not been as consistent. Review of Systems Constitutional: Negative. HENT: Negative. Eyes: Negative. Respiratory: Negative. Cardiovascular: Negative. Gastrointestinal: Positive for blood in stool and rectal pain. Endocrine: Negative. Genitourinary: Negative. Musculoskeletal: Negative. Allergic/Immunologic: Negative. Neurological: Negative. Hematological: Negative. Psychiatric/Behavioral: Negative. Objective Visit Vitals BP 131/76 Pulse (!) 122 Physical Exam Constitutional: Appearance: Normal appearance. HENT: Head: Normocephalic and atraumatic. Nose: Nose normal. Cardiovascular: Rate and Rhythm: Normal rate. Pulmonary: Effort: Pulmonary effort is normal. Abdominal: General: Abdomen is flat. Palpations: Abdomen is soft. Musculoskeletal: General: Normal range of motion. Cervical back: Normal range of motion. Skin: General: Skin is warm. Neurological: General: No focal deficit present. Mental Status: He is alert and oriented to person, place, and time. Psychiatric: Mood and Affect: Mood normal. Behavior: Behavior normal. Thought Content: Thought content normal. Judgment: Judgment normal. Assessment/Plan Diagnoses and all orders for this visit: Fissure in ano Painless rectal bleeding - Ambulatory referral to Gastroenterology; Future Diagnosis Plan 1. Painless rectal bleeding Ambulatory referral to Gastroenterology Orders Placed This Encounter Procedures Ambulatory referral to Gastroenterology Needs Colonoscopy for painless rectal bleeding. Pt s/p EUA w/ I&D and seton placement 07-12-23. Standing Status: Future Standing Expiration Date: 06/09/2023 Referral Priority: Routine Referral Type: Consultation Referral Reason: Specialty Services Required Referral Location: [facility] Requested Specialty: Gastroenterology Number of Visits Requested: 1 Will refer him closer to home for a colonoscopy. He will also need a refill on his compound ointment for his fissure. He said that it worked in the past. No results found for this or any previous visit (from the past 36 hour(s)). No follow-ups on file. [facility] 10-26-2022 Note Subjective Patient ID: Robert Pagan is a 32 y.o. male who presents for Follow-up (Patient is here for a follow up visit for Anal Fissure/Rectal Abscess s/p 07-12-23 EUA W/ I&D W/ SETON PLACEMENT (Discuss seton removal). /). HPI Robert Pagan is a 32 y.o. male patient who is here for seton removal. He states it has been draining well and he has never had to use a pad for excessive drainage. He denies any abdominal pain, rectal pain, blood in the stool and reports feeling well overall. Review of Systems Constitutional: Negative for chills, fatigue and fever. HENT: Negative for congestion, hearing loss and sore throat. Eyes: Negative for visual disturbance. Respiratory: Negative for cough, chest tightness and shortness of breath. Cardiovascular: Negative for chest pain and palpitations. Gastrointestinal: Negative for abdominal distention, abdominal pain, anal bleeding, blood in stool, constipation and diarrhea. Endocrine: Negative for polyuria. Genitourinary: Negative for hematuria and urgency. Musculoskeletal: Negative for arthralgias and back pain. Neurological: Negative for dizziness, weakness and numbness. Hematological: Does not bruise/bleed easily. Psychiatric/Behavioral: Negative for behavioral problems. Objective Visit Vitals BP 129/75 (BP Location: Left arm, Patient Position: Sitting, BP Cuff Size: Adult) Pulse 82 Physical Exam Constitutional: Appearance: Normal appearance. HENT: Head: Normocephalic and atraumatic. Nose: Nose normal. Cardiovascular: Rate and Rhythm: Normal rate. Pulmonary: Effort: Pulmonary effort is normal. Abdominal: General: Abdomen is flat. Palpations: Abdomen is soft. Genitourinary: Comments: seton Musculoskeletal: General: Normal range of motion. Cervical back: Normal range of motion. Skin: General: Skin is warm. Neurological: General: No focal deficit present. Mental Status: He is alert and oriented to person, place, and time. Psychiatric: Mood and Affect: Mood normal. Behavior: Behavior normal. Thought Content: Thought content normal. Judgment: Judgment normal. Assessment/Plan Diagnoses and all orders for this visit: Perianal fistula Will remove seton in office today. Return PRN. No diagnosis found. No orders of the defined types were placed in this encounter. No results found for this or any previous visit (from the past 36 hour(s)). No follow-ups on file. [facility] 09-02-2022 Note Subjective Patient ID: Robert Pagan is a 32 y.o. male who presents for Post-op (Robert is here today for a post op visit, s/p 07/12/23 I&D of perianal abscess. ). Patient has been wearing a pad around the seton placed in the fistula that has continued to have drainage since the procedure. Describes the drainage as hardy on the pad. Drainage will increase after a new lump appears and then drains. Patient is alsocomplaining of steady pain at the site. He has been taking ibuprofen and ketorlac with minimal improvement. Pain worsens with movement and is primarily located around the seton, but will spread to his lower back and down his legs when it becomes more severe, pain is described as a tingling sensation. Patient additionally endorses two episodes of red bloody bowel movements since the procedure HPI Review of Systems Constitutional: Negative for appetite change, chills, fatigue and fever. Gastrointestinal: Positive for blood in stool and rectal pain. Negative for abdominal pain, constipation, diarrhea, nausea and vomiting. New perianal lumps Musculoskeletal: Positive for gait problem and myalgias. Skin: Negative for color change, pallor, rash and wound. 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 Constitutional: Appearance: Normal appearance. He is normal weight. Abdominal: General: Abdomen is flat. Genitourinary: Rectum: Tenderness present. No mass. Comments: Seton present with mild drainage at the site Neurological: Mental Status: He is alert. Assessment/Plan Diagnoses and all orders for this visit: Anal fissure - MR pelvis wo contrast; Future Rectal abscess - MR pelvis wo contrast; Future Perianal abscess - Seton in place, drainage still present so will not remove today. - Patient continues to have pain which seems more neurological in nature, will order a rectal MRI to confirm no other abscesses are present Perianal Fissure - Patient has increased pain in the perianal area, will treat as if there is an anal fissure - Will order compound ointment to take for multiple weeks and reassess Constipation - Will discontinue stool softeners and add fiber to the diet No diagnosis found. No orders of the defined types were placed in this encounter. No results found for this or any previous visit (from the past 36 hour(s)). No follow-ups on file. [facility] 07-12-2022 Note Patient: Robert gonzalez Procedure Summary Date: 07/12/22 Room / Location: [facility] OR [address] [place] [address] OR Anesthesia Start: 1352 Anesthesia Stop: 1418 Procedures: EXAM UNDER ANESTHESIA INCISION AND DRAINAGE OF PERIANAL ABSCESS AND POSSIBLE SETON PLACEMENT Diagnosis: Anal fistula (Anal fistula [K60.3]) Surgeons: Luzmaria Galvan MD Responsible Provider: Akanksha Chavez MD Anesthesia Type: MAC ASA Status: 2 Anesthesia Type: MAC Vitals Value Taken Time BP 105/66 07/12/22 1430 Temp 36.5 ???C (97.7 ???F) 07/12/22 1415 Pulse 81 07/12/22 1430 Resp 18 07/12/22 1430 SpO2 95 % 07/12/22 1415 Anesthesia Post Evaluation Patient location during evaluation: PACU Patient participation: complete - patient participated Level of consciousness: awake and alert Pain score: 0 Pain management: adequate Airway patency: patent Cardiovascular status: acceptable Respiratory status: acceptable Hydration status: acceptable No notable events documented. [facility] 07-12-2022 Note Patient: Robert gonzalez Procedure Information Date/Time: 07/12/22 1215 Procedures: EXAM UNDER ANESTHESIA INCISION AND DRAINAGE OF PERIANAL ABSCESS AND POSSIBLE SETON PLACEMENT Location: [facility] OR [address] [place] [address] OR Surgeons: Luzmaria Galvan MD Past Medical History: Diagnosis Date ??? ADHD ??? Anal fistula Relevant Problems No relevant active problems Clinical information reviewed: Tobacco Allergies Meds Med Hx Surg Hx Fam Hx Soc Hx Physical Exam Airway Mallampati: I TM distance: >3 FB Neck ROM: full Cardiovascular - normal exam Rhythm: regular Rate: normal Dental - normal exam Pulmonary - normal exam Breath sounds clear to auscultation Abdominal - normal exam (+) obese Anesthesia Plan ASA 2 MAC The patient is not a current smoker. Patient was not previously instructed to abstain from smoking on day of procedure. Patient did not smoke on day of procedure. Education provided regarding risk of obstructive sleep apnea. intravenous induction Anesthetic plan and risks discussed with patient. Plan discussed with CAA. Additional Equipment Requests [facility] 07-08-2022 Note Subjective Patient ID: Robert Pagan is a 32 y.o. male who presents for Consult (Painless rectal bleeding; abdominal pain; lump beside anus; Referral in Media). This unfortunate 32-year-old male has a complaint of a lump around his perianal area that felt very full and then drained. He has had a CT scan, LUCY, and flex sig where they have been trying to diagnose his issues. He states that the previous surgeon was unable to identify any abnormalities. The patient states he is also having some abdominal pain after he eats but it seems unrelated to his perianal issues. Patient states he is having excessive draining from his anus that appears to be pus. He said initially he felt like he had a horseshoe type bulge around his anus. Review of Systems Constitutional: Negative. HENT: Negative. Eyes: Negative. Respiratory: Negative. Cardiovascular: Negative. Gastrointestinal: Positive for abdominal pain and rectal pain. Endocrine: Negative. Genitourinary: Negative. Musculoskeletal: Negative. Skin: Negative. Allergic/Immunologic: Negative. Neurological: Negative. Hematological: Negative. Psychiatric/Behavioral: Negative. Objective Visit Vitals BP (!) 147/102 (BP Location: Right arm, Patient Position: Sitting) Pulse 82 Temp 36.5 ???C (97.7 ???F) Physical Exam Constitutional: Appearance: Normal appearance. HENT: Head: Normocephalic and atraumatic. Nose: Nose normal. Cardiovascular: Rate and Rhythm: Normal rate. Pulmonary: Effort: Pulmonary effort is normal. Abdominal: General: Abdomen is flat. Palpations: Abdomen is soft. Genitourinary: Comments: Obvious opening on the 11 o'clock position of the perineum with active pus draining on palpation. Musculoskeletal: General: Normal range of motion. Cervical back: Normal range of motion. Skin: General: Skin is warm. Neurological: General: No focal deficit present. Mental Status: He is alert and oriented to person, place, and time. Psychiatric: Mood and Affect: Mood normal. Behavior: Behavior normal. Thought Content: Thought content normal. Judgment: Judgment normal. Assessment/Plan Diagnoses and all orders for this visit: Anal fistula - Case Request Operating Room: EXAM UNDER ANESTHESIA I&D of perianal abscess w/ possible seton placement; Standing Other orders - Full Code; Standing - bupivacaine liposome (Exparel) 1.3 % (13.3 mg/mL) injection 266 mg - Notify physician per standard parameters; Standing Diagnosis Plan 1. Anal fistula Case Request Operating Room: EXAM UNDER ANESTHESIA I&D of perianal abscess w/ possible seton placement Case Request Operating Room: EXAM UNDER ANESTHESIA I&D of perianal abscess w/ possible seton placement We will plan on taking this patient to the operating room for an exam under anesthesia and I&D and possible seton placement. I explained to the procedure in details to the patient and he understands and is willing to proceed. No orders of the defined types were placed in this encounter. No results found for this or any previous visit (from the past 36 hour(s)). No follow-ups on file. [facility] 05-18-2022 Note OPERATIVE NOTE OPERATION DATE: 05/18/2022 PREOPERATIVE DIAGNOSIS: Intermittent rectal pain and drainage. POSTOPERATIVE DIAGNOSIS: Mild rectal inflammation, decreased sphincter tone. PROCEDURE: Flexible sigmoidoscopy to 40 cm with rectal biopsy x2. SURGEON: Robert Rodriguez M.D. ANESTHESIA: Monitored anesthesia care. ESTIMATED BLOOD LOSS: Less than 1 mL. INDICATIONS AND CONSENT: Patient is a 32-year-old male with of intermittent history of rectal pain as well as drainage of white/yellowish mucus; was treated with antibiotics with some mild improvement. On exam in the office, he had no evidence of abscess or hemorrhoid or fissure. Now presents for sigmoidoscopy for further evaluation. Indications, risks, benefits, alternatives of proceeding were flexible sigmoidoscopy were explained extensively to the patient, including the risks of bleeding, colon perforation or anesthetic complications. All of his questions were answered. Informed consent was obtained. PROCEDURE: Patient brought to the procedure room, placed in the left lateral decubitus position. Monitored anesthesia care was provided. Rectal exam was performed which showed no masses or blood. The scope was inserted into the anal canal. Under direct visualization it was advanced to approximately 40 cm. Upon withdrawal of the scope, mucosal surfaces were carefully examined. There was noted to be some mild rectal inflammation without ulceration or bleeding. There was white mucus throughout the area of the rectum that was irrigated clear. Biopsy x2 was obtained of the rectum with good hemostasis. There was no evidence of fistulous tract or abscess or other inflammatory changes distally. No evidence of fissures or significant hemorrhoidal disease. Scope was retroflexed. There was noted to be some level of patulous sphincter. Externally, there were no inflammatory changes, fissures or fistula tracts. The scope was then withdrawn. Patient tolerated procedure well, was sent to recovery room in good condition. CC: Raquel Turner M.D. [facility] 05-03-2022 Note Chief Complaint consultation for buttock abscess HPI Staff 32 year old male presents on consultation from Dr. Turner for left buttock abscess. Reports one month ago he noted pain which he contributed to hemorrhoid. After two weeks, he noted spontaneous drainage of thick white/yellow material. 04/27 PCP prescribed Flagyl 500mg TID x 10 days and Cipro 500mg BID x 10 days, he remains on these. Doing sitz bath daily. States pain has dence ATB use. Reports he is experiencing more drainage though. History of Present Illness 32 yo male with h/o ADHD, anxiety, referred for buttock abscess; patient reports 1 month h/o rectal pain, then developed intermittent rectal drainage, white/yellow, mucous; no previous rectal surgery; began on antibiotics 1 week ago with some improvement; no previous colonoscopy or abd operations; no change in bms or blood in stools; no asa or NSAID use; no fmhx of GI malignancy or IBD. Review of Systems PHQ Score Initial Depression Screen Score: 0 ROS - Provider Constitutional: no fever, no sweats, no weight loss. Eyes: no glasses, no blurred vision, no visual loss. ENMT: no dentures, no hoarseness, no swallowing difficulties, no hearing loss, no ear infection(s), no nose bleeds. Cardiovascular: normal blood pressure, no chest pain, regular heartbeat, no heart murmur. Respiratory: no shortness of breath, no cough, no asthma, no wheezing. Gastrointestinal: no nausea, no vomiting, no diarrhea, no constipation, no blood in stool, no change in bowel habits, no abdominal pain, no hepatitis. Genitourinary: no kidney stones, no urine infection, no dysuria. Musculoskeletal: no pain, no weakness. Skin: no changing moles, no rash, no skin lumps. Neurologic: no seizures, no epilepsy, no headache. Psychiatric: no emotional or psychiatric problem. Heme/Lymph: no bleeding problems, no anemia, no blood clots, no transfusions. Allergy/Immunologic: no swollen lymph nodes/glands, no IV drug abuse. Other: Additional ROS info: Except as noted in the above Review of Systems and in the History of Present Illness, all other systems have been reviewed and are negative or noncontributory. Physical Exam Vitals & Measurements HR: 92(Peripheral) RR: 16 BP: 128/90 HT: 68 in HT: 172.72 cm WT: 102.5 kg WT: 225.5 lb BMI: 34.36 HEENT: normal conjunctiva, sclera clear, no scleral icterus, EOM intact, PERRLA, oral mucosa moist without lesions. Neck: trachea midline, no mass, symmetric, no thyromegaly or nodules, no adenopathy Respiratory: lungs CTA, respirations non labored. Cardiovascular: regular rate and rhythm, no murmur, no pedal edema or varicosities. Gastrointestinal: soft, non distended, no tenderness, no masses, no palpable hernias, diastasis recti no, no hepatosplenomegaly; normal bs rectal: no masses or blood, no inflammation, no fissures, no drainage or fluctuance, no tenderness; small external anal skin tags. Lymphatic: no cervical adenopathy, Musculoskeletal: normal gait, digits and nails without infection, nodes, cyanosis, clubbing. Skin: no rashes, no lesions, no ulcers, no subcutaneous nodules, induration. Psychiatric/Neuro: oriented to time, place, person, judgement normal, affect appropriate for age, insight intact, no focal deficits. Tests: , review of old records completed, Discussed surgical options, risks, and possible complications with patient. Assessment/Plan 1. Rectal pain (K62.89: Other specified diseases of anus and rectum) with mucous drainage, occasional blood; no external signs of inflammation or abscess, no external hemorrhoids; possible rectal colitis; plan flexible sigmoidoscopy under anesthesia for further evaluation; informed consent obtained. 2. Rectal bleeding (K62.5: Hemorrhage of anus and rectum) see # 1 3. Chews tobacco (Z72.0: Tobacco use) We strongly recommend to quit tobacco use. Cigarette smoking harms nearly every organ of the body, causes many diseases, and reduces the health of smokers in general. Quitting smoking lowers your risk for smoking-related diseases and can add years to your life. We encourage you to visit www.smokefree.gov access to helpful resources including free telephone support. If you decide on prescription treatment to help you quit, your family doctor would be happy to provide these. Follow-up No qualifying data available Problem List/Past Medical History Ongoing ADHD Anxiety BMI 34.0-34.9,adult Chews tobacco Hemorrhoids Low back pain syndrome Rectal bleeding Rectal pain Seasonal allergic rhinitis Historical No qualifying data Procedure/Surgical History Extraction of wisdom tooth, Meniscal repair. Medications Adderall XR 30 mg Cap-ER, 30 mg= 1 cap(s), Oral, qAM cyproheptadine 4 mg Tab, 4 mg= 1 tab(s), Oral, BID valacyclovir 1 g Tab, 1 gm= 1 tab(s), Oral, TID Allergies penicillins (Rash) Social History Alcohol Current, Beer, 1-2 times per week, 05/03/2022 Substance Abuse - Denies Substance Abuse, 05/03/2022 Tobacc (more content not included)... [facility] Comment on above: Result Comment: Elec tronically Signed By: OSCAR PRYOR, Robert Gutierrez\Date and Time Signed: 05/03/22 21:25 EDT Evaluation + Plan note No data available for this section [facility] Discharge instructions No data available for this section [facility] [place] [facility] note No data available for this section [facility] [place] Summary Purpose Family History No Family History Records FoundNo Family History Records FoundNo Family History Records FoundNo Family History Records FoundNo Family History Records Found Advance Directives No Advanced Directives Records FoundNo Advanced Directives Records FoundNo Advanced Directives Records FoundNo Advanced Directives Records FoundNo Advanced Directives Records Found Additional Source Comments (unrecognized sect ion and content) No Status Records FoundNo Status Records FoundNo Status Records FoundNo Status Records FoundNo Status Records Found INFORMATION SOURCE (unrecogn ized section and content) DATE CREATED AUTHOR 04/27/2018 [facility] DATE CREATED AUTHOR AUTHOR'S ORGANIZ ATION 06/27/2019 [facility] DATE CREATED AUTHOR AUTHOR'S ORGANIZ ATION 06/17/2022 [facility] DATE CREATED AUTHOR AUTHOR'S ORGANIZ ATION 07/15/2022 [facility] DATE CREATED AUTHOR AUTHOR'S ORGANIZ ATION 12/08/2022 [facility] Care Team (unrecognized sect ion and content) Personnel Name: Raquel Turner MD Address: [address] [place] [address] Personnel Name: Raquel Turner MD Address: Address: [address] [place] [address] FOR RECORDS PERTAINING TO PATIENTS WHO ARE OR HAVE BEEN ENROLLED IN A CHEMICAL DEPENDENCY/SUBSTANCEABUSE PROGRAM, SOME INFORMATION MAY BE OMITTED. This clinical summary was aggregated from multiple sources. Caution should be exercised in using it in the provision of clinical care. This summary normalizes information from multiple sources, and as a consequence, information in this document may materially change the coding, format and clinical context of patient data. In addition, data may be omitted in some cases. CLINICAL DECISIONS SHOULD BE BASED ON THE PRIMARY CLINICAL RECORDS. [facility] [employer] [facility]. provides no warranty or guarantee of the accuracy or completeness of information in this document.
--- NOTE | 2023-10-27 06:58 | MR_ITS ---
The [address] [address] Patient Name: ROBERT QUIÑONEZ MRN: [id number] date: 1990 Sex: M Assigned Patient Location: MRI Current Patient Location: MRI Accession/Order Number: [id number] Exam Date: 10/27/2023 07:00 Report Date: 10/27/2023 10:46 At the request of: FRANKIE ZENDEJAS Procedure: MR ankle RT wo/w con EXAM: MR ankle RT wo/w con REASON FOR EXAM: Right Heel Tumor Soft Tissue. TECHNIQUE: Multiplanar, multisequence imaging of the right ankle was performed without contrast COMPARISON: Radiographs 10/19/2023. FINDINGS: The Achilles tendon demonstrates normal thickness and signal without tendinosis or tear. The plantar fascia is normal in thickness without tear. Laterally, the peroneal tendons demonstrate grossly normal thickness and signal without tendinosis or tear. Mild tenosynovitis is noted. The superficial peroneal retinaculum is intact. Well-corticated ossific body along the inferior margin the lateral malleolus likely reflect prior injury. The anterior talofibular ligament is thin and attenuated consistent with prior injury. Calcaneofibular ligament is thin and attenuated. No evidence of acute lateral ligamentous injury. Medially, the medial flexor tendons demonstrate normal thickness and signal without tendinosis or tear. The deep deltoid ligament is dysmorphic with abnormal signal likely reflecting prior deep deltoid ligament sprain. The spring ligament is intact. The partially imaged Lisfranc ligament is intact. Anteriorly, the anterior extensor tendons demonstrate normal thickness and signal without tendinosis or tear. The bone marrow signal is without acute fracture or osteonecrosis. The talar dome is congruent. The subtalar joints intact. The sinus tarsi is nonedematous. The midfoot is congruent. The plantar musculature demonstrates normal bulk and signal. At the MRI compatible markers, there is prominent adipose tissue. A discrete abnormal mass not identified. There may be a more focal lipoma along the plantar aspect of the foot measuring approximately 4.3 cm in maximum dimension. No aggressive features identified. No significant adventitial bursitis identified. No drainable fluid collection or abscess identified. There is focal skin thickening enhancement along the posterior aspect of the calcaneus measuring approximately 1.4 cm in maximum dimension. MR/MR ankle RT wo/w con IMPRESSION: 1. Focal epidermal skin thickening along the posterior plantar aspect of the calcaneus. No drainable fluid collection or abscess identified. A discrete foreign body not identified. 2. Possible lipoma along the plantar medial aspect of the foot. 3. Sequela of prior medial and lateral ligamentous injury. No evidence of acute ligamentous disruption. 4. Mild peroneal tenosynovitis. Electronically authenticated by: NAKITA GOODWIN Date: 10/27/2023 10:46
== END 2023-10-27 06:55 | disposition home or self-care (01) ==
LOC: MRI 06:54
PROVIDERS: PCP Family Medicine; Visit Provider Physician Assistant
DX: D49.2 Neoplasm of unspecified behavior of bone, soft tissue, and skin (principal); M65.871 Other synovitis and tenosynovitis, right ankle and foot
CPT/HCPCS: 73723; A9575

== ENCOUNTER 2023-11-07 14:28 | Outpatient (OUT) | payer BC, SELFPAY ==
--- NOTE | 2023-11-07 14:31 | ECG_ITS ---
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
--- NOTE | 2023-11-07 14:57 | P.GSHP_ITS ---
History of Present Illness History of Present Illness Chief complaint: disorder of skin right heel Narrative: Patient presents for preadmission testing. Please see HPI from Dr. Guerra dated 10/31/2023. Review of Systems ROS Narrative Please see ROS from Dr. Guerra dated 10/31/2023. 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, unspecified leg (ICD- 10) Tinea corporis ?B35.4 - Tinea corporis (ICD-10) Anxiety ?F41.9 - Anxiety disorder, unspecified (ICD-10) Cellulitis ?L03.90 - Cellulitis, unspecified (ICD-10) Back pain ?M54.9 - Dorsalgia, unspecified (ICD-10) Tear meniscus knee ?S83.209A - Unspecified tear of unspecified meniscus, current injury, unspecified knee, initial encounter (ICD-10) STD exposure ?Z20.2 - Contact with and (suspected) exposure to infections with a predominantly sexual mode of transmission (ICD-10) COVID-19 ?U07.1 - COVID-19 (ICD-10) Sprain of ankle, calcaneofibular ligament ?S93.419A - Sprain of calcaneofibular ligament of unspecified ankle, initial encounter (ICD-10) Snoring ?R06.83 - Snoring (ICD-10) ADHD ?F90.9 - Attention-deficit hyperactivity disorder, unspecified type (ICD-10) Hemorrhoid ?K64.9 - Unspecified hemorrhoids (ICD-10) Perianal abscess ?K61.0 - Anal abscess (ICD-10) Migraine ?G43.909 - Migraine, unspecified, not intractable, without status migrainosus (ICD-10) Surgical History (Updated 11/07/23 @ 14:57 by July Farnsworth NP) S/P LASIK surgery of both eyes ?Z98.890 - Other specified postprocedural states (ICD-10) History of incision and drainage ?Z98.890 - Other specified postprocedural states (ICD-10) History of arthroscopy of knee ?Z98.890 - Other specified postprocedural states (ICD-10) History of arthroscopy of knee ?Z98.890 - Other specified postprocedural states (ICD-10) Family History (Updated 11/07/23 @ 14:44 by July Farnsworth NP) Other Family history of throat cancer Social History (Updated 11/07/23 @ 14:41 by July Farnsworth NP) Within the past year, how often did you have a drink containing alcohol: monthly or less Do you use any of these nicotine containing products: smokeless tobacco Smokeless tobacco user: chewing tobacco Non-prescribed substance use: denies use 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 Highest level of school completed/degree received: high school graduate Meds Home Medications and Allergies Allergies Allergy/AdvReac Type Severity Reaction Status Date / Time Penicillins Allergy Hives Verified 11/07/23 14:40 Exam Narrative Exam Narrative: Constitutional: Awake, alert, comfortable, well-appearing, nontoxic, interactive, vital signs as charted Head: Normocephalic, atraumatic Neck: Supple, normal appearance, normal range of motion, no meningeal signs, no lymphadenopathy Respiratory: No respiratory distress, breath sounds clear Cardiovascular: Regular rate and rhythm, strong and regular heart tones Neuro: No neurological deficits, normal sensation Psychiatric: Oriented ?3, normal affect Assessment and Plan Assessment and Plan (1) Soft tissue lesion: (2) Neoplasm of unspecified behavior of other specified sites: (3) Disorder of the skin and subcutaneous tissue, unspecified: Plan Excision of soft tissue lesion with closure and local soft tissue rearrangement of right heel scheduled with Dr. Guerra 11/20/2023.
[2023-11-07 15:13] LABS: Anion Gap 11.7; BUN Creatinine Ratio 12.5; Calcium 8.8 mg/dL (8.5-10.1); Carbon Dioxide 27.9 mmol/L (21.0-32.0); Chloride 105 mmol/L (98-107); Estimated GFR (African America >60 (>=60); Estimated GFR (Non-African Ame >60 (>=60); Glucose 84 mg/dL (74-106); Potassium 3.6 mmol/L (3.5-5.1); Sodium 141 mmol/L (136-145)
== END 2023-11-07 14:29 | disposition home or self-care (01) ==
PROVIDERS: PCP Family Medicine; Visit Provider Podiatrist Foot & Ankle Surgery
DX: Z01.810 Encounter for preprocedural cardiovascular examination (principal); Z01.812 Encounter for preprocedural laboratory examination; Z01.818 Encounter for other preprocedural examination; L98.9 Disorder of the skin and subcutaneous tissue, unspecified
CPT/HCPCS: 80048; 93005; G0463

== ENCOUNTER 2023-11-20 09:24 | Day surgery (SDC) | payer BC, SELFPAY ==
[2023-11-07 14:51] VITALS: BP 133/84; PULSE 84; TEMP 36.4; O2SAT 97; BMI 33.4
[2023-11-20] VITALS (10 sets, daily range): BP systolic 109–138; BP diastolic 67–92; PULSE 57–78; TEMP 36.2–36.9; O2SAT 95–100; BMI 32.8
[2023-11-20 09:42] LABS: Glucometer 98 mg/dL (74-106)
[2023-11-20] MEDS: LACTATED RINGER'S SOLUTION 1,000 ML 50 ML IV (09:48)
--- NOTE | 2023-11-20 10:22 | PC.NURSE ---
Updated Dr. Guerra on PCN allergy that results in hives. states to proceed with ordered Ancef.
[2023-11-20] MEDS: CEFAZOLIN SODIUM/DEXTROSE,ISO 2 GM/50 ML PIGGYBACK IV (10:53)
[2023-11-20] MEDS: LIDOCAINE HCL 1% 100 MG/10 ML MDV INJ (11:28)
[2023-11-20] MEDS: BUPIVACAINE HCL 0.5% PF 50 MG/10 ML VIAL INJ (11:45)
--- NOTE | 2023-11-20 11:51 | PM.ORONB ---
Brief Operative Note Date of procedure: 11/20/23 Pre-op diagnosis general: right foot skin lesion Post-op diagnosis: same as pre-op Procedure: PROCEDURE(S) PERFORMED: excision of skin lesion with local soft tissue rearrangement, right plantar foot INDICATION FOR PROCEDURE: patient is a 33-year-old male presented to my office relating to painful skin lesion for nearly 10 years. He believes that he stepped on a piece of glass however MRI was obtained and was negative for foreign body or aggressive soft tissue lesion. Patient in the past had responded to shoe modification and padding however the lesion was becoming so annoying the patient wished to have it excised. I discussed potential risks and benefits of the procedure and for sizing time needed for nonweightbearing given the lesions location as plantar central heel. All questions were asked to satisfaction and consent was obtained INTRAOPERATIVE FINDINGS: 1.2 x 0.5 cm fusiform shaped cutaneous lesion limited to skin and skin structures. Regular borders with reddish discoloration. No evidence of deeper soft tissue involvement and subcutaneous fat and fascia appeared to be normal PROCEDURE IN DETAIL: Patient was identified in pre op and consent was reviewed. Correct side and site were identified and marked. Pre-op antibiotics were started. Patient was brought to OR suite and place on table in a supine position. General anesthesia was administered. A tourniquet was applied. Operative extremity was prepped and draped in usual sterile fashion. Formal time-out was performed. field block was performed with 10 mL of one percent lidocaine plain. the lesion was excised in a 3-1 ellipse oriented medial to lateral with the resting skin tension lines. Wide excision was performed with at least 0.2 cm of normal appearing skin included in the excision. The lesion was limited to skin and skin structures and did not penetrate fascia as normal fascial planes and subcutaneous fat was noted after excision. Surgical site was irrigated with copious amounts of saline sterile saline. To reduce tension at closure blunt dissection along the fascial planes was performed. The lesion was then closed with skin suture. Hemostasis was controlled on the field with minimal blood loss. 10 mL of 0.5 percent Marcaine plain was injected as a field block for postoperative pain. A dry sterile dressing consisting of Xeroform on the incisions followed by 4 x 4 gauze, ABDs, and Kerlix were applied. Multiple layers of cast padding were then applied to ensure all bony prominences were well-padded. A plaster posterior splint was then applied which was held in place by Silas wraps. Capillary refill time to all digits was evaluated and had appropriate response. POSTOPERATIVE PLAN: Discharge home under family's care Post op instructions provided verbally and written prescription(s) were placed in chart NWB operative foot/ankle x3 wks or until skin has healed Follow-up in 1 week Implants: none Anesthesia: General-LMA Surgeon: Rohit Guerra Estimated blood loss (mL): 10 Tourniquet time (min): 0 Pathology: other (skin lesion) Condition: stable Disposition: PACU
[2023-11-20 12:22] LABS: Glucometer 87 mg/dL (74-106)
== END 2023-11-20 13:06 | disposition home or self-care (01) ==
PROVIDERS: PCP Family Medicine; Visit Provider Podiatrist Foot & Ankle Surgery
PROC: (CPT 400; principal; 2023-11-20 10:45)
DX: D23.71 Other benign neoplasm of skin of right lower limb, including hip (principal); I10 Essential (primary) hypertension; M79.671 Pain in right foot; B35.4 Tinea corporis; F41.9 Anxiety disorder, unspecified; Z86.16 Personal history of COVID-19; F17.220 Nicotine dependence, chewing tobacco, uncomplicated
CPT/HCPCS: 11422; 36415; 82948; 88305; J1094; J2704

== ENCOUNTER 2023-11-28 07:29 | Outpatient (RCR) | payer BC, SELFPAY | END 2023-12-05 23:59 | disposition home or self-care (01) | LOC: INF 07:29 | PROVIDERS: PCP Family Medicine; Visit Provider Internal Medicine Hematology & Oncology | DX: C44.92 Squamous cell carcinoma of skin, unspecified (principal) | CPT/HCPCS: G0463 ==

== ENCOUNTER 2023-12-26 08:47 | Outpatient (OUT) | payer BC, SELFPAY ==
--- NOTE | 2023-12-26 | XR_ITS ---
The [address] [address] Patient Name: ROBERT QUIÑONEZ MRN: [id number] date: 1990 Sex: M Assigned Patient Location: Current Patient Location: Accession/Order Number: [id number] Exam Date: 12/26/2023 08:50 Report Date: 12/27/2023 05:38 At the request of: ASCENCION BISHOP Procedure: XR ankle RT min 3V PROCEDURE: XR ankle RT min 3V, XR foot RT min 3V HISTORY: RIGHT ANKLE PAIN , right foot pain COMPARISON: XR foot right 10/19/2023, XR ankle right 04/06/2020 FINDINGS: BONES:Chronic separate ossification adjacent the tip of the lateral malleolus; ununited secondary ossification center versus sequela of remote injury. No fracture, dislocation, or bone lesion. No irregular joint space narrowing. SOFT TISSUES:No visible soft tissue swelling. EFFUSION:None visible. OTHER: Negative. XR/XR ankle RT min 3V IMPRESSION: 1. No acute bone abnormality or significant degenerative changes. Electronically authenticated by: ANTOINE BETANCOURT Date: 12/27/2023 05:38
--- NOTE | 2023-12-26 | XR_ITS ---
The [address] [address] Patient Name: ROBERT QUIÑONEZ MRN: [id number] date: 1990 Sex: M Assigned Patient Location: Current Patient Location: Accession/Order Number: [id number] Exam Date: 12/26/2023 08:50 Report Date: 12/27/2023 05:38 At the request of: ASCENCION BISHOP Procedure: XR foot RT min 3V PROCEDURE: XR ankle RT min 3V, XR foot RT min 3V HISTORY: RIGHT ANKLE PAIN , right foot pain COMPARISON: XR foot right 10/19/2023, XR ankle right 04/06/2020 FINDINGS: BONES:Chronic separate ossification adjacent the tip of the lateral malleolus; ununited secondary ossification center versus sequela of remote injury. No fracture, dislocation, or bone lesion. No irregular joint space narrowing. SOFT TISSUES:No visible soft tissue swelling. EFFUSION:None visible. OTHER: Negative. XR/XR foot RT min 3V IMPRESSION: 1. No acute bone abnormality or significant degenerative changes. Electronically authenticated by: ANTOINE BETANCOURT Date: 12/27/2023 05:38
--- OUTSIDE RECORDS SUMMARY | 2023-12-26 08:56 | XMS_ITS | CCD ---
Author Organization [facility] Care Team Providers Care Farmworker Cranberry Name Role Phone BERNICE ANTOINE C Unavailable Unavailable HOY, RAQUEL M Unavailable Unavailable JAZ STOUT Unavailable Unavailab le QUEEN ANTOINE C Unavailable Unavailable HOY, RAQUEL M Unavailable Unavailable QUEEN, ANTOINE C Unavailable Unavailable HOY, RAQUEL M Unavailable Unavailable QUEEN, ANTOINE C Unavailable Unavailable HOY, RAQUEL M Unavailable Unavailable JAZ STOUT Unavailable Unavailab le QUEEN ANTOINE C Unavailable [...] Consulting Unavailable NILL, DR JONES Admitting Unavailable HOY, DR GARCÍA Primary Care Unavailable LARRY GRAVES Consulting Unavailable MINERVA, DR GARCÍA Primary Care Unavailable HOY, DR GARCÍA Admitting Unavailable HOY, DR GARCÍA Attending Unavailable HOYvette, DR GARCÍA Primary Care Unavailable NILL, DR JONES Attending Unavailable NILL, DR JONES Consulting Unavailable NILL, DR JONES Admitting Unavailable HOY, DR GARCÍA Primary Care Unavailable NILL, DR JONES Attending Unavailable NILL, DR JONES Consulting Unavailable NILL, DR JONES Admitting Unavailable ANIKETABHIJEET Consulting Unavailable ASHGOIGNACIA Catalan Consulting Unavailable MINERVA, DR GARCÍA Primary Care Unavailable NILL, DR JONES Attending Unavailable NILL, DR JONES Admitting Unavailable NILL, Robert Ferguson Attending Unavailable Raquel Lopez Referring Unavailabl e ROBERTL, Robert Ferguson Attending Unavailable NILL, Robert Ferguson Attending Unavailable NILL, Robert Ferguson Attending Unavailable COLE, LUZMARIA Attending Unavailable COLE, LUZMARIA Admitting Unavailable COLE, LUZMARIA Attending Unavailable COLE, LUZMARIA Attending Unavailable COLE, LUZMARIA Attending Unavailable COLE, LUZMARIA Attending Unavailable LUZMARIA GALVAN Referring Unavailable Raquel Turner MD Primary Care Provider JOSE REY Attending Unavailable TIEN CLIFFORD Referring Unavailable RAQUEL TURNER Primary Care Unavailable Allergies Allergy Classification Reported Allergen(s) Allergy Type Date of Onset Reaction(s) Facility (3 sources) Penicillin; Translations: [penicillin] Drug Allergy 2 [facility] Repository (5 sources) Penicillins; Translations: [penicillins] Drug allergy 4 Eruption of skin (disorder), Hives [facility] [place] Medications Current Medications Medication Drug Class(es) Dates [...] left knee, initial encounter] Onset: 06-02-2017 Episodic Neoplasms of unspecified nature or uncertain behavior (4 sources) Squamous neoplasm of surface epithelium; Translations: [Neoplasm of unspecified behavior of unspecified site] Onset: 12-12-2023 12-12-2023 Episodic Other aftercare (1 source) Other intermodal customer service (current) drug therapy; Translations: [OTH [facility] CURRENT DRUG THERAPY] Onset: 05-25-2022 Episodic Other [...] Test Name Value Interpretation Reference Range Facility Surgical pathology studyon 0 12-14-2023 Surgical pathology study Pathology report.total SEE COMMENT Dermatopathology Report Case: [id number] Authorizing Provider: Jose Rey MD Collected: 12/14/2023821 Ordering Location: [facility] Received: 12/14/[address] [place] [address] Pathologist: Jessica Sage MD Specimen: OUTSIDE BLOCK(S)/SLIDE(S), 2 SLIDES, [facility], #[id number] (BX: 11/20/2023) Path report.final diagnosis SEE COMMENT 2 SLIDES, [facility], #[id number] (BX: 11/20/2023) SKIN, RIGHT HEEL, EXCISION: POROMA, 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 Electronically signed out by Jessica Sage MD Path report.relevant Hx Disorder of the skin and subcutaneous tissue, right heel Path report.gross observation SEE COMMENT A. OUTSIDE BLOCK(S)/SLIDE(S). Received for consultation from [facility] are two slides labeled [id number] (BX: 11/20/2023) along with the corresponding pathology report. Path report.microscopic observation Microscopic examination reveals a specimen that extends into the subcutaneous fat. There is serum crust with neutrophils and focal ulceration. There is epithelial hyperplasia with a multifocal connection to the overlying epidermis of monotonous poroid cells with occasional ducts. There are occasional superficial normal mitotic figures. [facility] Comment on above: Order Comment: Mater ials Received: 2 SLIDES, [facility], #[id number] (BX: 11/20/2023) Follow-Upon 12-07-2022 Follow-Up [id number] Vinicius Pagan ael 1990 M Date Provider Department Center 12/07/2022 LUZMARIA DOWNS [facility] SURG Second Fl Family History Problem Relation Age of Onset No Known Problems Mother No Known Problems Father Family Status - Relation Status Age at Mother Alive Father Alive Level of Service:80237 SD OFFICE/OUTPATIENT ESTABLISHED LOW MDM 20-29 MIN Reason for Visit and Comments: Follow-up [511765] - Robert is in for Perirectal abscess; s/p 07-12-23 EUA W/ I&D W/ SETON PLACEMENT (New rectal bleeding/rectal pain) a lot of drainage and pain Normal [facility] Follow-Upon 10-26-2022 Follow-Up [id number] Vinicius Pagan ael 1990 M Date Provider Department Center 10/26/2022 LUZMARIA DOWNS [facility] SURG Second Fl Family History Problem Relation Age of Onset No Known Problems Mother No Known Problems Father Family Status - Relation Status Age at Mother Alive Father Alive Level of Service:41545 SD POSTOP FOLLOW UP VISIT RELATED TO ORIGINAL PX Reason for Visit and Comments: Follow-up [979122] - Patient is here for a follow up visit for Anal Fissure/Rectal Abscess s/p 07-12-23 EUA W/ I&D W/ SETON PLACEMENT (Discuss seton removal). Normal [facility] MR PELVIS WO CONTRASTon 03-0 MR [...] drain in place. Electronically signed: Dharmesh Kirkpatrick. [facility] Comment on above: Order Comment: RECTA L MRI NEEDED Office Visiton 09-02-2022 Follow-up visit [id number] Vinicius Pagan ael 1990 M Date Provider Department Center 09/02/2022 Ramiro-LUZMARIA GALVAN [facility] SURG Second Fl Family History Problem Relation Age of Onset No Known Problems Mother No Known Problems Father Family Status - Relation Status Age at Mother Alive Father Alive Level of Service:21544 SD OFFICE/OUTPATIENT ESTABLISHED MDM 10-19 MIN Reason for Visit and Comments: Post-op [483] - Robert is here today for a post op visit, s/p 07/12/23 I&D of perianal abscess. [facility] 36on 07-18-2022 36 PER PT REQUEST EMAIL ED TO : [email or web address] 07/18/22 AT 10:04AM [facility] Consultation Noteon 07-14-20 Consultation Note [id number]#1.00CD:127 [facility] HPon 07-12-2022 HP H&P reviewed. The terry martell was examined and there are no changes to the H&P. [facility] NURSNOTEon 07-12-2022 NURSNOTE Pt anxious and ready to go. 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] Post-op Diagnosis * Anal fistula [K60.3] Procedures * EXAM UNDER ANESTHESIA * INCISION AND DRAINAGE OF PERIANAL ABSCESS AND POSSIBLE SETON PLACEMENT SD I&D PERIANAL ABSCESS SUPERFICIAL [95088] SD PLACEMENT SETON [55336] SD ANRCT XM SURG REQ ANES GENERAL SPI/EDRL DX [88519] Surgeons * Luzmaria Galvan - Primary Procedure Summary Anesthesia: General ASA: II Estimated Blood Loss: Minimal Total IV Fluids: 500 mL Drains: * None in log * Staff: Airfield Operations Specialist: Param Lyman RN Scrub Person: Mitra Mcmillan CST [place]ee Airfield Operations Specialist: Sandip Payne RN Indications: Robert Pagan is [...] hemodynamically stable. Condition: stable Luzmaria Galvan Normal [facility] POCT GLUCOSE METER UNSOLICIT ED RESULTSon 07-12-2022 Glucose [Mass/Vol] 74 mg/dL Normal 70-105 [facility] Comment on above: Result Comment: epaw low Performed By: #### L [id number] ####[facility] HOSPITAL LAB (BEAKER)[address] [place] [address] Orders Onlyon 07-11-2022 Orders Only [id number] Vinicius Pagan ael 1990 M Date Provider Department Center 07/11/2022 Fred-DEBORAH ABRAHAM [facility] PAT FL Medical C Family History Problem Relation Age of Onset No Known Problems Mother No Known Problems Father Family Status - Relation Status Age at Mother Alive Father Alive Normal [facility] Consulton 07-08-2022 Consult [id number] Vinicius Pagan ael 1990 M Date Provider Department Center 07/08/2022 Ramiro-LUZMARIA GALVAN [facility] SURG Second Fl Family History Problem Relation Age of Onset No Known Problems Mother No Known Problems Father Family Status - Relation Status Age at Mother Alive Father Alive Level of Service:73272 SD OFFICE/OUTPATIENT NEW LOW MDM 30-44 MINUTES Reason for Visit and Comments: Consult [484] - Painless rectal bleeding; abdominal pain; lump beside anus; Referral in Media Normal [facility] HPon 07-08-2022 HP Subjective Patient ID: [...] 36 hour(s)). No follow-ups on file. Normal [facility] RAD - CT Reporton 06-17-2022 RAD - CT Report [id number]#1.00CD:127 Normal [facility] CT PELVIS W CONon 06-11-2022 CT PELVIS [...] by: LARRY GRAVES Date: 2022-06-11 10:05 Normal [facility] Ambulatory Visit Summaryon 1 Ambulatory Visit Summary [...] Rectal discharge Rectal pain Seasonal allergic rhinitis Normal [facility] General Surgery Office/Clini c Noteon 06-01-2022 General [...] vaccine, inactivated - Not Given Patient Refuses Normal [facility] Comment on above: Result Comment: Elec tronically Signed By: OSCAR PRYOR, Robert Gutierrez\Date and Time Signed: 06/01/22 16:00 EDT Pathology Noteon 05-23-2022 Pathology Note [id number]:127 Normal [facility] Outside Flexible Sigmoidosco pyon 05-19-2022 Outside Flexible Sigmoidoscopy [id number]#1.00CD:127 Normal [facility] Lab Reportson 05-17-2022 Lab Reports [id number]#1.00CD:127 Normal [facility] Covid-19 PCR (CVDTB)on SARS-CoV-2 (COVID-19) RNA DILMA+probe Ql (Unsp spec) Not detected Normal NOT DETECTED [facility] Comment on above: Result Comment: This test is not yet approved or cleared by the [place] FDA. When there are no FDA-approved or cleared tests available, and other criteria are met, FDA can make tests available under an emergency access mechanism called an Emergency Use Authorization (EUA). The EUA for this test is supported by the Grain Trimmer of Health and Human Service's (HHS's) declaration [...] consistent with SARS-CoV-2. Performed By: #### C [facility] #### [facility] Laboratory [address] [place] [address] Dr. Anai Burdick Consultation Noteon 05-05-20 22 Consultation Note [id number]:127 Normal [facility] Consent for Procedure/Surger yon 05-04-2022 Consent for Procedure/Surgery [id number]#1.00CD:127 Normal [facility] Ambulatory Visit Summaryon 0 05-03-2022 Ambulatory [...] back pain syndrome Seasonal allergic rhinitis Normal [facility] Physician Referralon 022 Physician Referral [id number]#1.00CD:127 Normal [facility] CT Brain w/o Contraston 06-08 CT Brain w/o Contrast CT HEAD WITHOUT INTRAVENOUS CONTRAST (32694) CLINICAL HISTORY: Other (please specify) frontal headache, [...] intracerebral hemorrhage or mass. Radiation Dose Estimate: CTDI(mGy):0.355584 / / / kVp:120.884917 / mAs:0.558757 / / / DLP(mGy-cm):6.272967Tist Part: Head CTDI(mGy):47.432772 / / / kVp:120.177130 / mAs:190.351578 / / / DLP(mGy-cm):792.139753Mhix Part: Head Final Dictated by: Phillip Acosta MD Dictated DT/TM: 06.27.2019 1:31 am Signed by: Phillip Acosta MD Signed (Electronic Signature): 06.27.2019 1:34 am (If Report Is Signed, Electronically Signed in Other Vendor System) Normal [facility] ED Clinical Summaryon 2018 ED Clinical Summary [place] [id number] ED Clinical Summary Person Information Name: Robert Pagan [facility] Age: 29 Years : 1990 Sex: Male PCP: Raquel Turner MD Marital Status: Single Phone: Race: White Ethnicity: Not or Language: Khmer Visit Reason: Headache; Headache Acuity: 3 Enc Type: Emergency Med Service: Emergency Medicine Arrival: 06/27/2019 01:12:14 Discharge: 06/27/2019 02:07:00 LOS: 000 00:55 Checkin: 06/27/2019 01:12:14 Checkout: 06/27/2019 02:07:00 Dispo Type: Home or Self Care Address: [address] [place] [address] Provider Notes: Diagnosis: 1:Closed head injury; 2:Headache [...] HEADACHE, Unspecified; HEAD INJURY, No Wake-Up (Adult) [facility] Poison Help line: . [facility] Hotline: [place] Tobacco Quit Line: [place], [place]) [address]: [phone] [place], [place]) [address]: [phone] [facility] [address] [place], [place]: [phone] Normal [facility] ED Note-Physicianon 06-27-20 ED Note-Physician Chief [...] no erythema. Pulses normal, sensation intact] Skin: [[place], warm, dry, no injury, no rashes] Neuro: [...] qualifying data available (MRI) Electronically signed by Yadira Donald PA-C 06/27/19 02:49 EST Normal [facility] MRI KNEE LEFT WO CONTRASTon 04-13-2018 MRI [...] No evidence ofrecurrent meniscal tear.2. Sequelae of Jana-Schlatter's disease.3. Incidental note of a high origin of the anterior tibial artery.Interpreted by:Ananya Panda, DOSigned by:Ananya Panda, DO04/13/18Final result Normal [facility] Discharge Summaryon 09-25-19 18 HIM IP Note OR Wetland Scientist Normal [facility] Vital Signs Date Time Vital Sign Value Performing Clinician Facility 12-12-2023 12:58-0400 Body temperature 97.5 [degF] Jose Rey MD Work Phone: [facility] 12-12-2023 12:58-0400 Body weight 102.29 kg Jose Rey MD Work Phone: [facility] Comment on above: patient is wearing a boot 12-12-2023 12:58-0400 Diastolic blood pressure 84 mm[Hg] Jose Rey MD Work Phone: [facility] 12-12-2023 12:58-0400 Heart rate 77 /min Jose Rey MD Work Phone: [facility] 12-12-2023 12:58-0400 Respiratory rate 16 /min Jose Rey MD Work Phone: [facility] 12-12-2023 12:58-0400 SaO2% (BldA) [Mass fraction] 98 % Jose Rey MD Work Phone: [facility] 12-12-2023 12:58-0400 Systolic blood pressure 126 mm[Hg] Jose Rey MD Work Phone: [facility] 05-03-2022 16:07-0400 Blood Pressure Location Robert RODRIGUEZ [facility] [place] 05-03-2022 16:07-0400 Diastolic blood pressure 90 mm[Hg] Robert RODRIGUEZ [facility] [place] 05-03-2022 16:07-0400 Heart rate 92 /min Robert RODRIGUEZ [facility] [place] 05-03-2022 16:07-0400 Respiratory rate 16 /min Robert RODRIGUEZ [facility] [place] 05-03-2022 16:07-0400 Systolic blood pressure 128 mm[Hg] Robert RODRIGUEZ [facility] [place] Encounters Encounter Date Encounter Type Care Provider Facility Start: 12-12-2023 End: 12-13-2023 ambulatory JOSE REY [facility] Start: 12-12-2023 End: 12-12-2023 Office outpatient new 30 minutes Jose Rey MD Work Phone: [facility] Comment on above: Squamous neoplasm of surface epithelium (Primary Dx) Start: 12-07-2022 End: 12-07-2022 ambulatory [facility] Start: 10-26-2022 End: 10-26-2022 ambulatory [facility] Start: 10-12-2022 End: 10-13-2022 ambulatory [facility] Start: 09-02-2022 End: 09-02-2022 ambulatory [facility] Start: 07-12-2022 End: 07-12-2022 ambulatory [facility] Start: 07-08-2022 End: 07-08-2022 ambulatory [facility] Start: 06-11-2022 End: 06-12-[address] ROBERT RODRIGUEZ Facility:[facility] Start: 06-01-2022 End: 06-02-2022 [facility]ulatory [facility] Start: 06-01-2022 End: 06-01-2022 Patient encounter procedure Robert RODRIGUEZ [facility] Start: 05-18-2022 End: 05-19-[address] RAQUEL TURNER Facility:[facility] Start: 05-17-2022 Encounter for preprocedural laboratory examination DR ROBERT RODRIGUEZ [facility] Start: 05-14-2022 End: 05-15-[address] RAQUEL TURNER Facility:[facility] Start: 05-14-2022 End: 05-15-2022 Encounter for preprocedural laboratory examination DR RAQUEL TURNER Facility:[facility] Start: 05-11-[address] RAQUEL TURNER Facility :[facility] Start: 05-03-2022 End: 05-04-2022 ambulatory [facility] Start: 05-03-2022 End: 05-03-2022 Patient encounter procedure Robert RODRIGUEZ [facility] [place] Start: 05-02-2022 ambulatory [facility] Start: 07-27-[address] RAQUEL TURNER Facility : Start: 06-27-2019 End: 06-27-2019 Emergency department patient visit Physician - Emergency BV Facility:[facility] Start: 04-13-2018 End: 04-16-2018 [facility] encounter [facility] Start: 06-27-2017 End: 06-28-2017 Patient encounter [facility] Start: 06-26-2017 End: 06-27-2017 Patient encounter [facility] Start: 06-23-2017 End: 06-24-2017 Patient encounter [facility] Start: 06-20-2017 End: 06-21-2017 Patient encounter [facility] Start: 06-19-2017 End: 06-20-2017 Patient encounter [facility] Start: 06-16-2017 End: 06-17-2017 Patient encounter [facility] Start: 06-13-2017 End: 06-14-2017 Patient encounter [facility] Start: 06-12-2017 End: 06-13-2017 Patient encounter [facility] Start: 06-09-2017 End: 06-10-2017 [facility] Start: 06-07-2017 [facility] Start: 06-06-2017 End: 06-07-2017 Patient encounter [facility] Start: 06-05-2017 End: 06-06-2017 Patient encounter [facility] Start: 06-02-2017 End: 06-03-2017 Patient encounter [facility] Procedures Date Procedure Procedure Detail Performing Clinician Start: 10-26-2022 Follow-up visit Follow-up RAY GALVAN Start: 05-18-2022 Flexible fiberoptic sigmoidoscopy Robert RODRIGUEZ Start: 04-13-2018 Mri any jt lower ext rem w/o contrast matrl ANTOINE QUEEN Extraction of wisdom tooth Zac JONESRachel Repair of meniscus Robert Garcia SUZAN Plan of Treatment Date Care Activity Detail Author Start: 2040 Zoster Vaccines (1 of 2) Zoste r Vaccines (1 of 2) [facility] Start: 04-07-2024 Influenza vaccination Influenz a Vaccine (Season Ended) [facility] Start: 04-07-2023 COVID-19 Vaccine ( season) COVID-19 Vaccine ( season) [facility] Start: 2012 DTaP/Tdap/Td Vaccine s (4 - Tdap) DTaP/Tdap/Td Vaccines (4 - Tdap) [facility] Start: 2008 Hepatitis C screening Hepatitis C Sc [facility] Start: 2003 Varicella vaccination Varicell a Vaccines (1 of 2 - + 2-dose series) [facility] Start: 1990 HIV screening HIV Screening [facility] Start: 1990 Lipid panel Lipid Panel [facility] Start: 1990 Yearly Adult Physical Yearly Adult P hysical [facility] Immunizations Immunization Date Immunization Notes Care Provider Syed patel NEGATED: Highlighted row has not occurred!05-03-2022 influenza virus vaccine, unspecified formulation Robert OSCAR [facility] [place] Payers Date Payer Category Payer Unknown [id number] 2019 Unknown 2017 Unknown [id number] 2017 Unknown [id number] 1990 Unknown [id number] 2.16.8 [id number] 1990 Unknown [id number] 2.16.84 [id number] 1990 Unknown [id number] 2.16.84 [id number] 1990 Unknown [id number] 2.16.84 [id number] 1990 Unknown [id number] 2.16.84 [id number] 1990 Unknown [id number] 2.16.84 [id number] 1990 Unknown [id number] 2.16.8 [id number] 1990 Unknown [id number] 2.16.8 [id number] 1990 Unknown [id number] 2.16.8 [id number] 1990 Unknown [id number] 2.16.8 [id number] 1990 Unknown [id number] 2.16.8 [id number] 1959 Unknown [id number] 1959 Unknown [id number] Social History Date Type Detail Facility Start: 05-03-2022 Tobacco smoking status Never smoked tobacco (finding) [facility] Tobacco smoking status Smokeless tobacco user within last 30 days [facility] [place] Sex Assigned At Male [facility] [place] Tobacco smoking status COIS Tobacco smoking consumption unknown [facility] Work Phone: Start: 1990 Sex assigned at Not on file [facility] Work Phone: Start: 12-02-2023 End: 12-12-2023 Exposure to SARS-CoV-2 (event) Not sure [facility] Functional Status Date Assessment Result Facility 05-03-2022 Functional Status N/A [facility] Clinical Notes 05-03-2022 to 12-12-2023 Jose Rey MD - 12/12/2023 1:00 PM EDT Note Date & Type Note Facility 12-12-2023 History of Present illness Narrative Assessment and Plan: Robert Pagan is a 33 y.o. 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 I recommended that we get his pathology reviewed by our team and discuss his case at our tumor board. It is not clear to me if he actually has an invasive squamous cancer or not. I will contact him about next steps when we have a final answer from our tumor board. I spent 60 minutes in the professional and overall care of this patient. Jose Rey MD sprinkler driver Division of Surgical Oncology [phone] [email or web address] History Of Present Illness Referring provider: Tien Clifford Diagnosis: high grade squamous epithelial neoplasm Location: right heel All other systems have been reviewed and are negative except as noted in the HPI. I personally reviewed all necessary laboratory results, pathology reports, and radiologic images for this patient. Past Medical History He has no past medical history on file. Surgical History He has no past surgical history on file. Social History He has no history on file for tobacco use, alcohol use, and drug use. Family History No family history on file. Allergies Patient has no allergy information on record. Last Recorded Vitals There were no vitals taken for this visit. Physical Exam General: no acute distress, well-nourished Eyes: intact EOM, no scleral icterus ENT: hearing intact, no drainage Respiratory: symmetric chest rise, no cough Cardiovascular: intact distal pulses, no pitting edema Abdominal: Soft, nontender Musculoskeletal: no deformities, intact strength Integumentary: Healing biopsy site, no lymphadenopathy Neuro: no focal deficits, sensation intact Psych: normal mood and affect Relevant Results internal path review is pending documented in this encounter [facility] Work Phone: 12-07-2022 Note Subjective Patient ID: Robert Pagan is a 32 y.o. male who presents for Follow-up (Robert is in for Perirectal abscess; s/p 12-6-23 EUA W/ I&D W/ SETON PLACEMENT (New [...] Referral Reason: Specialty Services Required Referral Location: [facility] Requested Specialty: Gastroenterology Number of Visits Requested: 1 Will refer him closer to home for a colonoscopy. He will also need a refill on his compound ointment for his fissure. He said that it worked in the past. No results found for this or any previous visit (from the past 36 hour(s)). No follow-ups on file. [facility] 10-26-2022 Note Subjective Patient ID: Robert [...] past 36 hour(s)). No follow-ups on file. [facility] 09-02-2022 Note Subjective Patient ID: Robert [...] ???F) Physical Exam Exam conducted with a assisted living housekeeper present. Constitutional: Appearance: Normal appearance. He is [...] past 36 hour(s)). No follow-ups on file. [facility] 07-12-2022 Note Patient: Roebrt gonzalez Procedure Summary Date: 07/12/22 Room / Location: [address] OR Anesthesia Start: 1352 Anesthesia Stop: 1418 [...] Hydration status: acceptable No notable events documented. [facility] 07-12-2022 Note Patient: Robert gonzalez Procedure Information Date/Time: 07/12/22 1215 Procedures: EXAM UNDER ANESTHESIA INCISION AND DRAINAGE OF PERIANAL ABSCESS AND POSSIBLE SETON PLACEMENT Location: [address] OR Surgeons: Luzmaria Galvan MD Past Medical [...] Plan discussed with CAA. Additional Equipment Requests [facility] 07-08-2022 Note Subjective Patient ID: Robert [...] past 36 hour(s)). No follow-ups on file. [facility] 05-18-2022 Note OPERATIVE NOTE OPERATION DATE: [...] good condition. CC: Raquel Turner M.D. [facility] 05-03-2022 Note Chief Complaint consultation for [...] Abuse, 05/03/2022 Tobacc (more content not included)... [facility] Comment on above: Result Comment: Elec tronically Signed By: OSCAR PRYOR, Robert Wong.br\Date and Time Signed: 05/03/22 21:25 EDT Evaluation + Plan note No data available for this section General Surgery [place] Evaluation note Diagnosis Squamous neoplasm of surface epithelium- Primary documented in this encounter [facility] Work Phone: Hospital Discharge instructions No data available for this section General Surgery [place] Progress note No data available for this section General [facility] [place] Summary Purpose Family History No Family History [...] section and content) DATE CREATED AUTHOR 04/27/2018 [facility] DATE CREATED AUTHOR AUTHOR'S ORGANIZ ATION 06/27/2019 [facility] DATE CREATED AUTHOR AUTHOR'S ORGANIZ ATION 06/17/2022 [facility] DATE CREATED AUTHOR AUTHOR'S ORGANIZ ATION 07/15/2022 [facility] DATE CREATED AUTHOR AUTHOR'S ORGANIZ ATION 12/08/2022 [facility] DATE CREATED AUTHOR AUTHOR'S ORGANIZ ATION 12/17/2023 [facility] DATE CREATED AUTHOR AUTHOR'S ORGANIZ ATION 12/20/2023 [facility] Care Team (unrecognized 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 [employer] [facility]. provides no warranty or guarantee of the accuracy or completeness of information in this document.
== END 2023-12-26 08:48 | disposition home or self-care (01) ==
LOC: EC 08:47
PROVIDERS: PCP Family Medicine; Visit Provider Podiatrist Foot & Ankle Surgery
DX: M79.671 Pain in right foot (principal); M25.571 Pain in right ankle and joints of right foot
CPT/HCPCS: 73610; 73630